=== PATIENT | female | born 1980 | race Caucasian/White ===

== ENCOUNTER 2019-12-10 15:37 | Emergency (ER) | payer OTHER, SELFPAY ==
--- NOTE | ~2019-12-10 | XR_ITS ---
EXAMINATION: XR chest 2V EXAM DATE: 12/10/2019 16:10 INDICATION: Chest discomfort. Weakness, dizziness. History of asthma. TECHNIQUE: Frontal and lateral projections of the chest obtained and reviewed. Comparison is made to prior examination from 07/10/2006. FINDINGS: The lungs are clear. There are no pleural effusions. The cardiomediastinal silhouette is within normal limits. There is no pneumothorax suspected. The bones and soft tissues are unremarkab le. There are cholecystectomy clips. IMPRESSION: No acute cardiopulmonary findings. Reviewed, dictated and finalized at location A.
[2019-12-10 15:40] VITALS: BP 138/91; PULSE 91; RESP 20; TEMP 36.1; O2SAT 100
[2019-12-10 15:49] VITALS: O2SAT 96
--- NOTE | 2019-12-10 15:57 | ECG_ITS ---
Measurements Intervals [place] Rate: 91 P: 47 FL: 145 QRS: 14 QRSD: 81 T: 30 QT: 341 QTc: 420 Interpretive Statements SINUS RHYTHM LOW QRS VOLTAGE IN PRECORDIAL LEADS BORDERLINE ECG Electronically Signed On 12-10-2019 16:57:12 CDT by Nate Grayson D.O.
--- NOTE | 2019-12-10 16:20 | ED.GENADULT ---
HPI - General Adult General Chief complaint: Weakness Stated complaint: WEAKNESS/DIZZY Time Seen by Provider: 12/10/19 16:07 Source: patient Mode of arrival: ambulatory Limitations: no limitations History of Present Illness HPI narrative: Patient is 39 years old white female, morbidly obese presents with multiple symptoms including generalized weakness, nausea, dizziness, shortness of breath for the last 2 months. Patient was told that her platelets are low. Currently patient denying any fever, chills, vomiting, diarrhea, urinary symptoms, chest pain, shortness of breath, COVID-19 exposure. Patient on Effexor, does not smoke or drink, does remember the last time of her menstrual period. Related Data Home Medications Medication Instructions Recorded Confirmed albuterol sulfate 90 mcg/actuation 1 puff INHALATION Q4H PRN 06/08/19 11/21/19 aerosol inhaler flunisolide 80 mcg/actuation HFA 80 mcg INHALATION BID 06/08/19 11/21/19 aerosol inhaler metformin 1,000 mg tablet 1,000 mg PO BID 06/08/19 11/21/19 naproxen 500 mg tablet 500 mg PO BID 06/08/19 11/21/19 norethindrone acetate 5 mg tablet 5 mg PO DAILY 06/08/19 11/21/19 venlafaxine 150 mg 150 mg PO BID cap 06/08/19 11/21/19 capsule,extended release 24 hr Allergies Allergy/AdvReac Type Severity Reaction Status Date / Time sulfamethoxazole Allergy hives Verified 12/10/19 15:52 [From Bactrim] Review of Systems Review of Systems: Narrative: CONSTITUTIONAL: Denies fever, chills, or sweats. EYES: Denies visual changes, redness, or discharge. ENT: Denies rhinorrhea, congestion, sore throat, or otalgia. CARDIOVASCULAR: Denies chest pain, palpitations, or edema. RESPIRATORY: Denies cough or dyspnea. GASTROINTESTINAL: Denies abdominal pain, nausea, vomiting, or diarrhea. GENITOURINARY: Denies dysuria or hematuria. SKIN: Denies rash or itching. MUSCULOSKELETAL: Denies back pain, joint pain, or myalgia. NEUROLOGIC: Denies headache, numbness, or weakness. PSYCHIATRIC: Denies anxiety or depression. [facility] Past Medical History Medical History Depression Follows with psych Fatigue Mild persistent asthma without complication Polycystic ovarian syndrome Family History Family History Father Family history of mental disorder Hypertension Family history of heart disease in male family member before age 55 Mother Family history of heart disease in male family member before age 55 Other Depression Social History Social History Smoking status: Never smoker Alcohol intake: never Exam Narrative: Exam Narrative: General appearance: Well-developed, well-nourished, morbidly obese, does not look in pain or distress. No family member at the bedside. Skin: Normal color Head: Normocephalic, nontraumatic Eyes: Clear conjunctiva ENT: Oropharynx normal, ears normal, nose normal Neck: Supple, nontender Chest and respiratory: Airway patent, no respiratory distress, no accessory muscle use Heart: Regular rate/rhythm Abdomen: Soft, nontender, no organomegaly, quiet bowel sounds Vascular: Normal peripheral pulses, normal capillary refill. Musculoskeletal: Normal range of motion, nontender back Neurologic: Alert and oriented ?3, WATER RESOURCES ENGINEER is normal as tested, no gross motor deficit Course Course Emergency Course: Stable Vital Signs Vital signs: Vital Signs Temperature 36.1 C L 12/10/19 15:40 Pulse Rate 91 12/10/19 15:40 Respiratory Rate 20 12/10/19 15:40 Blood Pressure 138/91 H 12/10/19 15:40 Pulse Oximetry 100 12/10/19 15:
[2019-12-10 16:36] LABS: Basophils Absolute Auto 0.1 K/mm3 (0.0-0.1); Basophils Percent Auto 0.4 % (0.2-1.2); Eosinophils Absolute Auto 0.3 K/mm3 (0-0.3); Eosinophils Percent Auto 1.8 % (0-4.4); Hematocrit 43.7 % (37.0-47.0); Hemoglobin 14.3 g/dL (12.0-15.0); Immature Granulocyte Absolute 0.04 K/mm3 (0.00-0.031); Immature Granulocyte Percent A 0.3 % (0-0.5); Lymphocytes Absolute Auto 2.99 K/mm3 (0.9-3.2); Lymphocytes Percent Auto 21.9 % (18.3-44.2); Mean Corpuscular HGB Conc 32.7 g/dl (32-36); Mean Corpuscular Hemoglobin 28.1 pg (26-34); Mean Corpuscular Volume 85.9 fl (80-100); Mean Platelet Volume 9.1 fl (7.4-10.4); Monocytes Absolute Auto 0.9 K/mm3 (0.1-0.6); Monocytes Percent Auto 6.7 % (2.6-8.5); Neutrophils Absolute Auto 9.4 K/mm3 (1.3-6.7); Neutrophils Percent Auto 68.9 % (45.5-73.1); Platelet Count Result 504 k/mm3 (150-375); Red Blood Count 5.09 M/mm3 (4.2-5.4); Red Cell Distribution Width 13.7 % (11.5-14.5); White Blood Count 13.6 K/mm3 (4.5-10.0)
[2019-12-10 16:49] LABS: Alanine Aminotransferase 16 U/L (4-35); Albumin Level 4.1 g/dL (3.5-5.1); Alkaline Phosphatase 77 U/L (38-126); Aspartate Amino Transferase 23 U/L (14-36); Bilirubin,Total 0.2 mg/dL (0.2-1.3); Blood Urea Nitrogen 12 mg/dL (7-17); Carbon Dioxide 27 mmol/L (22-30); Chloride 102 mmol/L (98-107); Estimated CRCL calculation 103 ml/min; Estimated Glomerular Filt Rate > 60; Glucose 100 mg/dL (65-105); Sodium 138 mmol/L (137-145)
[2019-12-10 17:09] VITALS: BP 154/88; PULSE 94; RESP 27; O2SAT 96
[2019-12-10 17:11] VITALS: PULSE 98
[2019-12-10 17:21] LABS: Add Urine Microscopic? YES; Appearance Urine Cloudy (Clear); Bacteria Urine Trace /hpf; Bilirubin Urine Negative (Negative); Color Urine Yellow (Yellow); Glucose Urine UA Negative (Negative); Ketones Urine Negative (Negative); Leukocyte Esterase Ur 3+ LEU/UL (Negative); Mucus Urine Rare /lpf; Nitrate Urine Negative (Negative); Protein Urine Negative (Negative); RBC Urine 0-2 /hpf (0-2); Specific Grav Ur 1.027 (1.001-1.035); Squamous Epithelial Cell Urine Many /hpf (Few); Urobilinogen Urine Negative mg/dL (<2.0); WBC Urine 16-20 /hpf
[2019-12-10 17:22] LABS: Blood Urine Negative (Negative)
[2019-12-10 18:03] VITALS: BP 139/87; PULSE 90; RESP 18; O2SAT 99
== END 2019-12-10 18:09 | disposition home or self-care (01) ==
PROVIDERS: Emergency Provider Emergency Medicine; PCP Family Medicine
DX: N39.0 Urinary tract infection, site not specified (principal); E66.01 Morbid (severe) obesity due to excess calories; Z68.42 Body mass index [BMI] 45.0-49.9, adult; F32.9 Major depressive disorder, single episode, unspecified; J45.30 Mild persistent asthma, uncomplicated; E28.2 Polycystic ovarian syndrome; R94.31 Abnormal electrocardiogram [ECG] [EKG]
CPT/HCPCS: 36415; 71046; 80053; 81001; 81025; 85025; 87086; 87088; 93005; 96365; 99284; J0696

== ENCOUNTER 2021-01-09 13:56 | Outpatient (CLI) | payer OTHER, SELFPAY ==
[2021-01-09 14:12] LABS: Basophils Absolute Auto 0.1 K/mm3 (0.0-0.1); Basophils Percent Auto 0.4 % (0.2-1.2); Eosinophils Absolute Auto 0.4 K/mm3 (0-0.3); Hematocrit 44.1 % (37.0-47.0); Immature Granulocyte Absolute 0.03 K/mm3 (0.00-0.031); Immature Granulocyte Percent A 0.2 % (0-0.5); Lymphocytes Absolute Auto 3.37 K/mm3 (0.9-3.2); Lymphocytes Percent Auto 27.4 % (18.3-44.2); Mean Corpuscular HGB Conc 31.7 g/dl (32-36); Mean Corpuscular Hemoglobin 28.5 pg (26-34); Mean Corpuscular Volume 89.6 fl (80-100); Mean Platelet Volume 9.1 fl (7.4-10.4); Neutrophils Absolute Auto 7.5 K/mm3 (1.3-6.7); Platelet Count Result 457 k/mm3 (150-375); Red Blood Count 4.92 M/mm3 (4.2-5.4); Red Cell Distribution Width 13.7 % (11.5-14.5); White Blood Count 12.3 K/mm3 (4.5-10.0)
== END 2021-01-09 13:57 | disposition home or self-care (01) ==
LOC: ANHLAB 14:00
PROVIDERS: PCP Family Medicine; Visit Provider Internal Medicine Hematology & Oncology
DX: R79.89 Other specified abnormal findings of blood chemistry (principal)
CPT/HCPCS: 36415; 85025

== ENCOUNTER 2021-08-19 11:00 | Outpatient (RCR) | payer SELFPAY ==
[2021-07-22 11:04] VITALS: BMI 49.8
[2021-07-22 11:05] VITALS: BMI 49.8
[2021-08-19 11:05] VITALS: BMI 49.6
[2021-08-19 11:07] VITALS: BMI 49.6
== END 2021-10-06 10:43 | disposition home or self-care (01) ==
LOC: ANHDMC 11:00
PROVIDERS: PCP Family Medicine; Visit Provider Internal Medicine Endocrinology, Diabetes & Metabolism
DX: E28.2 Polycystic ovarian syndrome (principal); Z68.43 Body mass index [BMI] 50.0-59.9, adult; Z71.3 Dietary counseling and surveillance
CPT/HCPCS: 97802; 97803

== ENCOUNTER 2021-12-16 15:55 | Outpatient (CLI) | payer OTHER, SELFPAY ==
--- NOTE | ~2021-12-16 | MM_ITS ---
EXAMINATION: MM screening maribel BI w mark HISTORY: Screening mammogram TECHNIQUE: Craniocaudal and mediolateral oblique 3-D tomosynthesis images were obtained and synthetic 2-D images were generated. CAD analysis was submitted and interpreted. COMPARISON: No prior mammogram is available for comparison at this institution. BREAST PARENCHYMAL COMPOSITION: The breasts are almost entirely fatty. FINDINGS: There is no evidence of suspicious mass, calcification, or architectural distortion to sugg est malignancy in either breast. There has been no suspicious interval change. IMPRESSION: 1. No mammographic evidence of malignancy. 2. Recommend routine screening mammography in one year. BI-RADS Category 1: Negative Reviewed, dictated and finalized at location A.
== END 2021-12-16 15:56 | disposition home or self-care (01) ==
PROVIDERS: PCP Family Medicine; Visit Provider Obstetrics & Gynecology
DX: Z12.31 Encounter for screening mammogram for malignant neoplasm of breast (principal)
CPT/HCPCS: 77063; 77067

== ENCOUNTER 2022-01-05 09:36 | Outpatient (CLI) | payer OTHER, SELFPAY ==
[2022-01-05 09:52] LABS: Basophils Absolute Auto 0.1 K/mm3 (0.0-0.1); Basophils Percent Auto 0.7 % (0.2-1.2); Eosinophils Absolute Auto 0.3 K/mm3 (0-0.3); Hematocrit 47.1 % (37.0-47.0); Immature Granulocyte Absolute 0.04 K/mm3 (0.00-0.031); Immature Granulocyte Percent A 0.4 % (0-0.5); Lymphocytes Absolute Auto 2.43 K/mm3 (0.9-3.2); Lymphocytes Percent Auto 23.1 % (18.3-44.2); Mean Corpuscular HGB Conc 31.8 g/dl (32-36); Mean Corpuscular Hemoglobin 29.1 pg (26-34); Mean Corpuscular Volume 91.5 fl (80-100); Monocytes Absolute Auto 0.7 K/mm3 (0.1-0.6); Neutrophils Absolute Auto 6.9 K/mm3 (1.3-6.7); Neutrophils Percent Auto 65.8 % (45.5-73.1); Platelet Count Result 492 k/mm3 (150-375); Red Blood Count 5.15 M/mm3 (4.2-5.4); Red Cell Distribution Width 13.4 % (11.5-14.5); White Blood Count 10.5 K/mm3 (4.5-10.0)
[2022-01-05 09:56] LABS: Blood Urea Nitrogen 14 mg/dL (8-26); Carbon Dioxide 23 mmol/L (22-30); Chloride 105 mmol/L (98-109); Estimated Glomerular Filt Rate > 60; Glucose 93 mg/dL (70-105); Ionized Calcium (POC) 1.09 mmol/L (1.11-1.31); Potassium 4.2 mmol/L (3.5-4.9); Sodium 139 mmol/L (138-146)
[2022-01-05 12:27] LABS: Alanine Aminotransferase 24 U/L (6-35); Albumin Level 4.2 g/dL (3.5-5.1); Alkaline Phosphatase 81 U/L (38-126); Anion Gap 8 mmol/L (8-16); Aspartate Amino Transferase 26 U/L (14-36); Bilirubin,Total 0.3 mg/dL (0.2-1.3); Blood Urea Nitrogen 14 mg/dL (7-17); Calcium 8.6 mg/dL (8.4-10.2); Carbon Dioxide 22 mmol/L (22-30); Chloride 106 mmol/L (98-107); Estimated Glomerular Filt Rate > 60; Glucose 88 mg/dL (65-110); Potassium 4.2 mmol/L (3.4-5.0); Sodium 136 mmol/L (137-145)
== END 2022-01-05 09:37 | disposition home or self-care (01) ==
LOC: ANHLAB 09:37
PROVIDERS: PCP Family Medicine; Visit Provider Internal Medicine Hematology & Oncology
DX: D75.838 Other thrombocytosis (principal)
CPT/HCPCS: 36415; 80047; 80053; 85025

== ENCOUNTER 2023-01-28 12:55 | Outpatient (CLI) | payer OTHER, SELFPAY ==
[2023-01-28 13:17] LABS: Basophils Absolute Auto 0.1 K/mm3 (0.0-0.1); Basophils Percent Auto 0.4 % (0.2-1.2); Eosinophils Absolute Auto 0.2 K/mm3 (0-0.3); Eosinophils Percent Auto 1.9 % (0-4.4); Hematocrit 44.4 % (37.0-47.0); Hemoglobin 14.4 g/dL (12.0-15.0); Immature Granulocyte Absolute 0.05 K/mm3 (0.00-0.031); Immature Granulocyte Percent A 0.4 % (0-0.5); Lymphocytes Absolute Auto 3.19 K/mm3 (0.9-3.2); Mean Corpuscular HGB Conc 32.4 g/dl (32-36); Mean Corpuscular Hemoglobin 29.6 pg (26-34); Mean Corpuscular Volume 91.2 fl (80-100); Mean Platelet Volume 8.7 fl (7.4-10.4); Monocytes Percent Auto 8.2 % (2.6-8.5); Neutrophils Absolute Auto 7.8 K/mm3 (1.3-6.7); Neutrophils Percent Auto 63.1 % (45.5-73.1); Platelet Count Result 507 k/mm3 (150-375); Red Blood Count 4.87 M/mm3 (4.2-5.4); Red Cell Distribution Width 13.3 % (11.5-14.5); White Blood Count 12.3 K/mm3 (4.5-10.0)
[2023-01-28 16:34] LABS: Alanine Aminotransferase 29 U/L (6-35); Albumin Level 4.2 g/dL (3.5-5.1); Alkaline Phosphatase 63 U/L (38-126); Anion Gap 6 mmol/L (8-16); Aspartate Amino Transferase 23 U/L (14-36); Bilirubin,Total 0.4 mg/dL (0.2-1.3); Blood Urea Nitrogen 15 mg/dL (7-17); Calcium 9.1 mg/dL (8.4-10.2); Carbon Dioxide 26 mmol/L (22-30); Chloride 101 mmol/L (98-107); Estimated Glomerular Filt Rate > 60; Glucose 92 mg/dL (65-110); Potassium 4.3 mmol/L (3.4-5.0); Sodium 133 mmol/L (137-145)
== END 2023-01-28 12:56 | disposition home or self-care (01) ==
LOC: ANHLAB 12:57
PROVIDERS: Visit Provider Internal Medicine Hematology & Oncology
DX: D75.838 Other thrombocytosis (principal)
CPT/HCPCS: 36415; 80053; 85025

== ENCOUNTER 2023-03-18 15:10 | Outpatient (CLI) | payer OTHER, SELFPAY ==
--- NOTE | ~2023-03-18 | MM_ITS ---
EXAMINATION: MM screening maribel BI w mark HISTORY: Screening mammogram, family history of breast cancer in her mother. TECHNIQUE: Craniocaudal and mediolateral oblique 3-D tomosynthesis images were obtained and synthetic 2-D images were generated. CAD analysis was submitted and interpreted. COMPARISON: 12/16/2021 BREAST PARENCHYMAL COMPOSITION: The breasts are almost entirely fatty. FINDINGS: No suspicious mass, calcification, or architectural distortion are identified in either ashley ast to suggest malignancy. There has been no suspicious interval change. IMPRESSION: 1. No mammographic evidence of malignancy. 2. Recommend routine screening mammography in one year. BI-RADS Category 1: Negative Reviewed, dictated and finalized at location B.
== END 2023-03-18 15:11 | disposition home or self-care (01) ==
PROVIDERS: Visit Provider Obstetrics & Gynecology
DX: Z12.31 Encounter for screening mammogram for malignant neoplasm of breast (principal)
CPT/HCPCS: 77063; 77067

== ENCOUNTER 2023-09-14 10:42 | Outpatient (CLI) | payer OTHER, SELFPAY ==
--- NOTE | ~2023-09-14 | MMUS_ITS ---
EXAMINATION: MM diagnostic maribel BI w mark, US axilla LT HISTORY: Palpable left axillary abnormality. Tenderness. TECHNIQUE: Additional 3-D tomosynthesis images of the breasts were performed and synthetic 2-D images were generated. CAD analysis was submitted and interpreted. High resolution Limited left axillary ul trasound was performed. COMPARISON: Comparison to multiple prior studies sequentially, with oldest reviewed study dated 12/16. BREAST PARENCHYMAL COMPOSITION: Not dense: There are scattered areas of fibroglandular density. FINDINGS: MAMMOGRAPHIC FINDINGS: There are no suspicious masses, calcifications or architectural distortion in either breast to sugges t malignancy. ULTRASOUND: Limited left axillary ultrasound: Normal heterogeneous echotexture without focal solid or cystic mass . IMPRESSION: 1. No evidence for malignancy in either breast. 2. Routine yearly screening mammogram and regular clinical breast examination are recommended. BI-RADS Category 1: Negative Reviewed, dictated and finalized at location A. [facility] PLANNING IMPRESSION: 1. No evidence for malignancy in either breast. 2. Routine yearly screening mammogram and regular clinical breast examination a re recommended. BI-RADS Category 1: Negative
== END 2023-09-14 10:43 | disposition home or self-care (01) ==
DX: R22.32 Localized swelling, mass and lump, left upper limb (principal)
CPT/HCPCS: 76882; 77062; 77066; G0279

== ENCOUNTER 2024-02-02 09:33 | Outpatient (CLI) | payer OTHER, SELFPAY ==
[2024-02-02 09:50] LABS: Basophils Percent Auto 0.4 % (0.2-1.2); Eosinophils Absolute Auto 0.5 K/mm3 (0-0.3); Eosinophils Percent Auto 4.3 % (0-4.4); Hematocrit 45.8 % (37.0-47.0); Hemoglobin 14.7 g/dL (12.0-15.0); Immature Granulocyte Absolute 0.02 K/mm3 (0.00-0.031); Immature Granulocyte Percent A 0.2 % (0-0.5); Lymphocytes Absolute Auto 2.59 K/mm3 (0.9-3.2); Lymphocytes Percent Auto 23.7 % (18.3-44.2); Mean Corpuscular HGB Conc 32.1 g/dl (32-36); Mean Corpuscular Hemoglobin 28.9 pg (26-34); Mean Platelet Volume 8.7 fl (7.4-10.4); Monocytes Absolute Auto 0.7 K/mm3 (0.1-0.6); Monocytes Percent Auto 6.7 % (2.6-8.5); Neutrophils Absolute Auto 7.1 K/mm3 (1.3-6.7); Neutrophils Percent Auto 64.7 % (45.5-73.1); Platelet Count Result 468 k/mm3 (150-375); Red Blood Count 5.09 M/mm3 (4.2-5.4); Red Cell Distribution Width 12.9 % (11.5-14.5); White Blood Count 10.9 K/mm3 (4.5-10.0)
== END 2024-02-02 09:34 | disposition home or self-care (01) ==
PROVIDERS: Visit Provider Internal Medicine Hematology & Oncology
DX: D75.838 Other thrombocytosis (principal)
CPT/HCPCS: 36415; 85025

== ENCOUNTER 2025-02-01 09:36 | Outpatient (CLI) | payer OTHER, SELFPAY ==
--- OUTSIDE RECORDS SUMMARY | 2025-02-01 09:40 | XMS_ITS | Encounter Summary ---
Author Organization [facility] Address [address] [place] [address] Care Team Providers Care Curing Room Supervisor Name Role Phone Bony Wright MD Primary Care Provider [phone] Franki Nunn DO Primary Care Provider + [phone] Encounter Details Date Type Department Care Team (Late st Contact Info) Description 03/18/2022 Prep for Procedure [facility] Day [facility] [place], [place] [id number] Tom Briscoe DO [address] [place] [address] [address] [place] [address] Social History Tobacco Use Types Packs/Day Years Used Date Smoking Tobacco: Never Smokeless Tobacco: Never Alcohol Use Standard Drinks/Week Comments No 0 (1 standard drink = 0.6 oz pur e alcohol) AUDIT-C Answer Date Recorded Frequency of Alcohol Consumption Never 11/23/2018 Average Number of Drinks Not on file 019 Frequency of Binge Drinking Not on file 02/2019 Comments No Sex and Gender Information Value Date Recorded Sex Assigned at Not on file Legal Sex Female 7:56 PM CDT Gender Identity Not on file Sexual Orientation Not on file documented as of this encounter Plan of Treatment Not on file documented as of this encounter Visit Diagnoses Diagnosis Constipation- Primary Unspecified constipation documented in this encounter Additional Health Concerns Infection Onset Date Last Indicated Resolved Time COVID-19 Rule Out 04/16/2022 04/16/2022 04/16/2022 11:44 AM CDT documented as of this encounter Care Teams Curing Room Supervisor Relationship Specialty Start Date End Date Bony Wright MD [address] [place] [address] PCP - General FAMILY PRACTICE 11/23/18 04/15/22 Franki Nunn DO [address] [address] PCP - General FAMILY PRACTICE 04/16/22 documented as of this encounter
--- OUTSIDE RECORDS SUMMARY | 2025-02-01 09:40 | XMS_ITS | Encounter Summary ---
Author Organization [facility] Address [address] [place] [address] Care Team Providers Care Car Sales Representative Name Role Phone Bony Wright MD Primary Care Provider [phone] Franki Nunn DO Primary Care Provider + [phone] Encounter Details Date Type Department Care Team (Late st Contact Info) Description 04/07/2022 Prep for Procedure [facility] One Day Services [place], [place] [id number] Tom Briscoe DO [address] [place] [address] [address] [place] [address] Social History Tobacco Use Types Packs/Day Years [...] as of this encounter Visit Diagnoses Diagnosis GERD (gastroesophageal reflux disease)- Primary Esophageal reflux Constipation Unspecified constipation History of colon polyps Personal history of colonic polyps documented in this encounter Additional Health Concerns Infection Onset Date Last Indicated Resolved Time COVID-19 Rule Out 04/16/2022 04/16/2022 04/16/2022 11:44 AM CDT documented as of this encounter Care Teams Car Sales Representative Relationship Specialty Start Date End Date Bony Wright MD [address] [place] [address] PCP - General FAMILY PRACTICE 11/23/18 04/15/22 Franki Nunn DO [address] [address] PCP - General FAMILY PRACTICE 04/16/22 documented as of this encounter
--- OUTSIDE RECORDS SUMMARY | 2025-02-01 09:40 | XMS_ITS | Clinical Summary ---
Author Organization [facility] Address [address] [place] [address] Care Team Providers Care Short Goods Drier Name Role Phone Franki Nunn DO Primary Care Provider [phone] Allergies Active Allergy Reactions Criticality Noted Date Comments Sulfamethoxazole-Trimethoprim Rash High 2019 Medications norethindrone (AYGESTIN) 5 MG tablet Take 1 tablet (5 mg total) by mouth daily. Active venlafaxine XR (EFFEXOR-XR) 150 MG 24 hr capsule Take 1 capsule (150 mg total) by mouth daily. Active aspirin EC (ECOTRIN) 81 MG tablet Take 1 tablet (81 mg total) by mouth daily. Active famotidine (PEPCID) 40 MG tablet Take 1 tablet (40 mg total) by mouth 2 (two) times daily as needed for Heartburn. Active albuterol sulfate HFA 108 (90 Base) MCG/ACT inhaler Inhale 1 puff into the lungs every 4 (four) hours as needed. Active losartan (COZAAR) 50 MG tablet Take 1 tablet (50 mg total) by mouth daily. 05/21/2021 Active meloxicam (MOBIC) 15 MG tablet Take 1 tablet (15 mg total) by mouth daily as needed (Inflammatio n). 04/08/2022 Active metFORMIN (GLUCOPHAGE) 1000 MG tablet Take 1 tablet (1,000 mg total) by mouth 2 (two) times daily. 04/08/2022 Active hydrOXYzine (ATARAX) 10 MG tablet Take 1 tablet (10 mg total) by mouth 3 (three) times daily as needed for Anxiety. Active Immunizations Immunization Administration Dates Next Due Influenza Adult (Generic) 05/21/2021,,05/02/2020,06/01/2019,2018,09/05/2014 Social History Tobacco Use Types Packs/Day Years [...] on file Sexual Orientation Not on file Last Filed Vital Signs Vital Sign Reading Time Taken Comments Blood Pressure 153/98 04/18/2024 5:55 PM CDT Pulse 84 04/18/2024 5:55 PM CDT Temperature 36.9 C (98.5 F) 04/18/2024 5:55 PM CDT Respiratory Rate 18 04/18/2024 5:55 PM CDT Oxygen Saturation 100% 04/18/2024 5:55 PM CDT Inhaled Oxygen Concentration - - Weight 136.1 kg (300 lb) 04/18/2024 5:55 PM CDT Height 165.1 cm (5' 5) 04/18/2024 5:55 PM CDT Body Mass Index 49.92 04/18/2024 5:55 PM CDT Plan of Treatment Health Maintenance Due Date Last Done Comments Annual Physical 1983 Hepatitis C 1998 Hepatitis B Vaccines (1 of 3 - 19+ 3-dose series) 1999 COVID-19 Vaccine (2023-2 5 season) 2024 Mammogram Screening 09/14/2025 09/14/2023 Cervical Cancer Screening Pa p Smear (Age 30 to 64) Every 3 Years 12/20/2026 12/21/2023, 01/21/2022 Cervical Cancer Screening Pa p with HPV Testing (Age 30 to 64) Every 5 Years 01/21/2027 01/21/2022 Cervical Cancer Screening wi th HPV 01/21/2027 DTaP, Tdap and Td Vaccines ( 2 - Td or Tdap) 01/17/2034 01/18/2024 Pneumococcal Vaccine: Pediatrics (0 to 5 Years) and At-Risk Patients (6 to 49 Years) Aged Out 04/29/2023 No longer eligible b ased on patient's age to complete this topic HPV Vaccines Aged Out No longer eligi ble based on patient's age to complete this topic Meningococcal B Vaccine Aged Out No l onger eligible based on patient's age to complete this topic Meningococcal Vaccine Aged Out No new jennifer eligible based on patient's age to complete this topic RSV Immunizations Under 20 Months Aged Out No longer eligible b ased on patient's age to complete this topic Insurance [employer] Care Teams Short Goods Drier Relationship Specialty Start Date End Date Franki Nunn DO [address] [address] PCP - General FAMILY PRACTICE 04/16/22
--- OUTSIDE RECORDS SUMMARY | 2025-02-01 09:41 | XMS_ITS | Clinical Summary ---
Author Organization [facility] Address [address] [place] [address] Care Team Providers Care Hr Receptionist Name Role Phone Franki Nunn DO Primary Care Provider + Allergies Active Allergy Reactions Criticality Noted Date Comments Sulfamethoxazole-Trimethoprim Hives,Rash,Urticaria High 12/19/2019 Medications albuterol HFA (PROVENTIL HFA,VENTOLIN HFA,PROAIR HFA) 90 mcg/actuation inhaler albuterol sulfate HFA 90 mcg/actuation aerosol inhaler INHALE 1 PUFF BY MOUTH EVERY 4 HOURS NEEDED FOR SHORTNESS OF BREATH OR WHEEZING Active aspirin 81 mg enteric coated tablet Take 1 tablet (81 mg total) by mouth daily Active losartan (COZAAR) 50 mg tablet Take 1 tablet (50 mg total) by mouth daily 1 Active metFORMIN (GLUCOPHAGE) 1,000 mg tablet TAKE 1/2 (ONE-HALF) TABLET BY MOUTH TWICE DAILY 0 Active norethindrone (AYGESTIN) 5 mg tablet norethindrone acetate 5 mg tablet TAKE 1 TABLET BY MOUTH ONCE DAILY DURING SECOND HALF OF THE MENSTRUAL CYCLE 0 Active nystatin cream nystatin 100,000 unit/gram topical cream APPLY CREAM TOPICALLY TO AFFECTED AREA(S) TWICE DAILY FOR 5 TO 7 DAYS NEEDED (MIX WITH TRIAMCINOLONE CREAM) Active terconazole (TERAZOL 7) 0.4 % vaginal cream terconazole 0.4 % vaginal cream Active traMADoL (ULTRAM) 50 mg tablet Take 1 tablet (50 mg total) by mouth every 6 (six) hours as needed 9 Active triamcinolone (KENALOG) 0.1 % cream triamcinolone acetonide 0.1 % topical cream APPLY CREAM TOPICALLY TO AFFECTED AREA(S) TWICE DAILY FOR 5 TO 7 DAYS NEEDED (MIX WITH NYSTATIN CREAM) 2 Active venlafaxine XR (EFFEXOR-XR) 150 mg 24 hr capsule 3 Active ziprasidone (GEODON) 20 mg capsule Active naproxen (NAPROSYN) 500 mg tabletIndicati ons:Contusion of toe of left foot, initial encounter Take 1 tablet (500 mg total) by mouth 2 (two) times a day with meals for 15 days 30 tablet 5 Active Active Problems Problem Noted Date Diagnosed Date Knee pain 08/07/2022 Knee joint effusion 08/07/2022 Wrist joint pain 08/07/2022 Reactive thrombocytosis 12/19/2019 Osteoarthrosis 06/30/2019 PCOS (polycystic ovarian syndrome) 09/19/2014 IBS (irritable bowel syndrome) 05/21/2011 Degenerative disc disease, lumbar 05/21/2011 Ulcerative colitis 05/20/2011 Obesity 02/12/2010 Encounters Date Type Department Care Team Description 11/22/2024 12:25 PM CDT Ancillary Procedure [facility] [address] [phone] Contusion of toe of left foot, initial encounter 11/22/2024 Results Follow-Up [facility] [address] [address] Shreya Dozier, COLLECTION TELLER XR Toe 2nd Digit Right Minimum 2 Views 11/21/2024 3:30 PM CDT Office Visit [facility] [address] [phone] Shreya Dozier, COLLECTION TELLER Toe injury, right, initial encounter (Primary Dx); Contusion of toe of left foot, initial encounter 11/03/2024 10:45 AM CDT Office Visit [facility] [address] [facility] [address] [place] [address] Yuli Escalante MD De Quervain's tenosynovitis (Primary Dx) from Last 3 Months Surgical History Surgery Date Site/Laterality Comments CARPAL TUNNEL RELEASE 07/19/2010 - 07/18/2011 Right CHOLECYSTECTOMY 07/19/2006 - 07/18/2007 Medical History Medical History Date Comments ADHD (attention deficit hyperactivity disorder) Diabetes mellitus (HCC) Anemia Asthma Depression Gastric reflux Hypertension Hypercholesteremia Migraines Osteoporosis Social History Tobacco Use Types Packs/Day Years Used Date Smoking Tobacco: Never Tobacco Cessation:Counseling Given: Not Answered Personal Safety Answer Date Recorded Have you ever been in or are you currently in a harmful physical or emotional relationship or is someone making you feel afraid or unsafe? Denies 06/05/2024 Comments No Sex and Gender Information Value Date Recorded Sex Assigned at Not on file Legal Sex Female 6:44 PM PAINT PREPPER Gender Identity Not on file Sexual Orientation Not on file Obstetrics History Last Filed Vital Signs Vital Sign Reading Time Taken Comments Blood Pressure 120/59 06/06/2024 7:40 AM PAINT PREPPER Pulse 59 11/21/2024 3:31 PM CDT Temperature 36.5 C (97.7 F) 11/21/2024 3:31 PM CDT Respiratory Rate 18 11/21/2024 3:31 PM CDT Oxygen Saturation 99% 11/21/2024 3:31 PM CDT Inhaled Oxygen Concentration - - Weight 144.2 kg (318 lb) 11/21/2024 3:31 PM CDT Height 160 cm (5' 3) 11/21/2024 3:31 PM CDT Body Mass Index 56.33 11/21/2024 3:31 PM CDT Plan of Treatment Health Maintenance Due Date Last Done Comments Cervical Cancer Screening 1980 Depression Screening 1980 Hepatitis C Screening 1980 Varicella Vaccines (1 of 2 - 13+ 2-dose series) 1993 Hepatitis B Screening 1998 Regular Well Visit/Exam 18-64 1998 Pneumococcal vaccine <65 (1 of 2 - PCV) 1999 Breast Cancer Screening-Mammogram 09/14/2024 09/14/2023, 09/14/2023 DTaP/Tdap/Td Vaccine (2 - Td or Tdap) 01/17/2034 01/18/2024 Influenza Vaccine Completed 06/02/2024, , 04/29/2022, Additional history exists HPV Vaccines Aged Out No longer eligi ble based on patient's age to complete this topic Procedures Procedure Name Priority Date/Time Associated Diagnosis Comments XR TOE 2ND DIGIT RIGHT Schedule WOLFGANG, Read WOLFGANG (Appt Today, Awaiting Results) 11/21/2024 3:46 PM CDT Contusion of toe of left foot, initial encounter [place] INJECTION 1 TENDON SHEATH/LIGAMENT APONEUROSIS Routine 11/03/2024 10:45 AM CDT De Quervain's tenosynovitis from Last 3 Months Results * XR Toe 2nd Digit Right Minimum 2 Views (11/21/2024 3:46 PM CDT) Anatomical Region Laterality Modality Lower Extremities, Foot, Toes Right Co mputed Radiography 11/22/2024 2:54 PM CDT Narrative 11/22/2024 2:55 PM CDT EXAM DESCRIPTION: XR TOE 2ND DIGIT RIGHT MINIMUM 2 VIEWS REASON FOR STUDY: Foot trauma, no prior imaging (Age >= 6y) TECHNIQUE: 3 radiographic view(s) of the right foot 2nd digit . COMPARISON: None FINDINGS: There is no definite evidence of acute displaced fracture or dislocation the 2nd digit of the right foot. There is mild soft tissue swelling. IMPRESSION: Mild soft tissue swelling involving the 2nd digit of the right foot without definite evidence of acute displaced fracture or dislocation. If clinical symptoms persist, then follow-up radiographs in 7-10 days is recommended. THIS IS AN ELECTRONICALLY VERIFIED FINAL REPORT 11/22/2024 2:55 PM - Electronically signed by Gloria Ugarte D.O. PS T: Report ID: [id number] Reading Location: [id number] Procedure Note Gloria Ugarte DO - 11/22/2024 EXAM DESCRIPTION: XR TOE 2ND DIGIT RIGHT MINIMUM 2 VIEWS REASON FOR STUDY: Foot trauma, no prior imaging (Age >= 6y) TECHNIQUE: 3 radiographic view(s) of the right foot 2nd digit . COMPARISON: None FINDINGS: There is no definite evidence of acute displaced fracture or dislocation the 2nd digit of the right foot. There is mild soft tissue swelling. IMPRESSION: Mild soft tissue swelling involving the 2nd digit of the right footwithout definite evidence of acute displaced fracture or dislocation. If clinical symptoms persist, then follow-up radiographs in 7-10 days isrecommended. THIS IS AN ELECTRONICALLY VERIFIED FINAL REPORT 11/22/2024 2:55 PM - Electronically signed by Gloria Ugarte D.O. PS T: Report ID: [id number] Reading Location: [place] [address] [place] Shreya Dozier COLLECTION TELLER IMG XR PROCEDURES Final Resu lt * UT INJECTION 1 TENDON SHEATH/LIGAMENT APONEUROSIS (11/03/2024 10:45 AM CDT) Narrative Yuli Escalante MD - 11/03/2024 10:45 AM CDT Yuli Escalante MD 11/03/2024 10:57 AM De Quervain's injection: L extensor compartment 1 Performed by: Yuli Escalante MD Authorized by: Yuli Escalante MD De Quervain's Injection: Consent Given by: Patient Site marked: the procedure site was marked Timeout: prior to procedure the correct patient, procedure, and site was verified Verbal consent obtained?: Yes Written consent obtained?: No Supporting Documentation: Indications: Pain and tendon swelling Procedure Details: Condition: de Quervain's Site: L extensor compartment 1 Prep: patient was prepped and draped in usual sterile fashion Prep: patient was prepped using a clean technique Medications: 1 mL lidocaine 10 mg/mL (1 %); 40 mg triamcinolone 40 mg/mL us Yuli Escalante MD IN CLINIC/BEDSIDE ORDERAB LES Final Result from Last 3 Months Insurance Care Teams Hr Receptionist Relationship Specialty Start Date End Date Franki Nunn DO [address] [address] PCP - General Family Practice 06/06/24
--- OUTSIDE RECORDS SUMMARY | 2025-02-01 09:41 | XMS_ITS | Data Portability ---
Author Organization [place] - [facility] [employer], Main Office Address [address] [place] [address] Care Team Providers Care Storage Engineer Name Role Phone MARIO CARDENAS Primary Care Provider Assessment No assessment recorded. Plan of Treatment Reminders Order Date Submit Date Provider Last Modified By Organization Details Last Modified Time Details Appointments Follow Up 15 2024 10:15A M Marcelino Rodriguez MD Not available Not available Not available Lab None recorded. Referral None recorded. Procedures fine needle aspiratio n, ultrasoun d guided, thyroid (PROC) 2023 024 [email or web address] 2 [facility], [address] [place], [address], 10/25/2024 15:21:11 Surgeries None recorded. Imaging None recorded. Medication Orders None recorded. Patient TargetsNo targets recorded. Patient InstructionsNo instructions recorded. Reason for Referral None Reported. Results Created Date Observation Date Name Description Value Unit Range Abnormal Flag Note LastModifiedBy Organization Detail LastModifiedTime 06/07/2006/07/2022 XR, wrist No observ ation record ed. [id number] [facility] [address] [place], [address], 09/16/2022 13:54:27 03/08/20 24 01/15/2024 CT, angio gram, chest , w/ contr ast No observ ation record ed. [email or web address] Not Available 2023 12:20:12 03/08/20 24 02/16/2024 US, thyro id No observ ation record ed. [email or web address] Not Available 2023 12:20:57 04/04/20 24 04/04/2024 fine needl e aspir ation , ultra sound guide d, thyro id (PROC ) No observ ation record ed. [email or web address] [facility] [address] , [place], [address], 04/05/2024 15:58:57 Result Notes None recorded. Problems Name Problem SNOMED Code Status Onset Date Resolution Date Notes Provider Name and Address Organization Details Recorded Time Knee joint effusion Active Not Available [facility] 13:52:10 Pain of joint of wrist Active Not Available [facility] 13:52:10 Knee pain Active Not Available [facility] 13:52:10 Osteoarthriti s 557848384 Active Not Available [facility] 13:52:10 Carpal tunnel syndrome 25443749 Active Not Available [facility] 13:52:10 Constipation 50820831 Active 2020 Not Available [facility] 3 13:52:10 Thyroid nodule 546037452 Active 2023 Marcela Chen RN null, [facility] [employer] 4 14:58:06 Thyroid nodule 240325202 Active 2023 DAYSI Nelson [address], [address] , [facility] [employer] [facility] [employer] 4 15:03:02 Problem Notes None recorded. Procedures Surgical History Date Name Laterality Status Provider Name and Address Organization Details Recorded Time 07/19/19 11 Date of Last Colonoscopy completed Not Available [facility] 09/16/2022 13:51:42 07/19/19 11 Colonoscopy completed Not Available [facility] 09/16/2022 13:51:42 Cholecystectomy completed Not Available [facility] 09/16/2022 13:51:42 Carpal tunnel completed Not Available [facility] 09/16/2022 13:51:42 Imaging Results None recorded. Procedure Notes None recorded. Medical Equipment None Reported. Allergies Allergen ID Allergen Name Allergen Category Reaction Reaction Severity Criticality Documentation Date Start Date Code Code System Note Provider Name and Address Organization Details Recorded Time 89107 Bactrim medicatio n Not available Not available Not available 09/16/2022 70343 9 RxNorm Not Available [facility] 3 13:54:26 63810 Substance with sulfonami de structure and antibacte rial mechanism of action (substanc e) medicatio n hives rash Not available Not available [facility] 03/01/2024 36000 8003 SNOMED MAR Watson [facility] [employer] 4 08:40:47 26825 sulfameth oxazole / trimethop rim medicatio n hives rash Not available Not available [facility] 03/01/2024 03424 RxNorm MAR Watson [facility] [employer] 4 08:40:43 Medications Name Sig Start Date Stop Date Status Note LastModified by Organization Details LastModified Time losartan 50 mg tablet Take 1 tablet every day by oral route. active Not Available Not Available No t Available amoxicillin 500 mg capsule 12/25 completed Not Available Not Available Not Available metformin 500 mg tablet TAKE 1 TABLET BY MOUTH TWICE DAILY 03/01 completed Not Available Not Available Not Available terconazole 0.4 % vaginal cream 03/01 completed Not Available Not Available Not Available venlafaxine ER 75 mg capsule,ext ended release 24 hr TAKE 1 CAPSULE BY MOUTH ONCE DAILY TAKE WITH EFFEXOR XR 150MG FOR TOTAL DAILY DOSE OF 225MG 03/01 completed Not Available Not Available Not Available atorvastati n 20 mg tablet TAKE 1 TABLET BY MOUTH ONCE DAILY IN THE EVENING 03/01 completed Not Available Not Available Not Available Tab-A-Prince tablet 03/01 completed Not Available Not Available Not Available ibuprofen 800 mg tablet 12/25 completed Not Available Not Available Not Available fluconazole 150 mg tablet TAKE ONE TABLET BY MOUTH TODAY AND REPEAT IN 3 DAYS 02/22 completed Not Available Not Available Not Available valacyclovi r 1 gram tablet TAKE 2 TABLETS BY MOUTH NOW THEN TAKE 2 TABLETS BY MOUTH 12 HOURS LATER 02/22 completed Not Available Not Available Not Available fluconazole 200 mg tablet TAKE 1 TABLET BY MOUTH EVERY OTHER DAY FOR 3 DOSES 02/24 completed Not Available Not Available Not Available meloxicam 15 mg tablet Take 1 tablet every day by oral route. active Not Available Not Available No t Available famotidine 40 mg tablet TAKE 1 TABLET BY MOUTH TWICE DAILY 03/01 completed Not Available Not Available Not Available Generlac 10 gram/15 mL oral solution TAKE 30ML BY MOUTH TWICE DAILY 02/24 completed Not Available Not Available Not Available terconazole 0.8 % vaginal cream 06/22 completed Not Available Not Available Not Available venlafaxine ER 150 mg capsule,ext ended release 24 hr TAKE 1 CAPSULE BY MOUTH ONCE DAILY WITH MEALS active Not Available Not Available No t Available penicillin V potassium 500 mg tablet 06/22 completed Not Available Not Available Not Available metronidazo le 500 mg tablet TAKE 1 TABLET BY MOUTH TWICE DAILY FOR 7 DAYS 03/01 completed Not Available Not Available Not Available ciprofloxac in 500 mg tablet 12/25 completed Not Available Not Available Not Available sulfamethox azole 800 mg-trimetho prim 160 mg tablet 06/22 completed Not Available Not Available Not Available tramadol 50 mg tablet 02/22 completed Not Available Not Available Not Available triamcinolo ne acetonide 0.1 % topical cream APPLY CREAM TOPICALLY TO AFFECTED AREA(S) TWICE DAILY FOR 5 TO 7 DAYS NEEDED (MIX WITH [place]STATIN CREAM) 03/01 completed Not Available Not Available Not Available terconazole 80 mg vaginal suppository 02/22 completed Not Available Not Available Not Available nystatin-tr iamcinolone 100,000 unit/gram-0 .1 % topical ointment 02/22 completed Not Available Not Available Not Available amoxicillin 875 mg tablet 12/25 completed Not Available Not Available Not Available ziprasidone 20 mg capsule 02/22 completed Not Available Not Available Not Available phenazopyri dine 100 mg tablet 06/22 completed Not Available Not Available Not Available cephalexin 500 mg capsule TAKE 1 CAPSULE BY MOUTH TWICE DAILY 12/25 completed Not Available Not Available Not Available erythromyci n 5 mg/gram (0.5 %) eye ointment 12/25 completed Not Available Not Available Not Available metformin 1,000 mg tablet Take 0.5 tablets twice a day by oral route. active Not Available Not Available No t Available tobramycin 0.3 % eye drops INSTILL 1 DROP INTO EACH EYE EVERY 4 HOURS FOR 7 DAYS 02/22 completed Not Available Not Available Not Available nystatin 100,000 unit/gram topical cream APPLY CREAM TOPICALLY TO AFFECTED AREA(S) TWICE DAILY FOR 5 TO 7 DAYS NEEDED (MIX WITH TRIAMCINO LONE CREAM) 02/22 completed Not Available Not Available Not Available dextroamphe tamine-amph etamine ER 10 mg 24hr capsule,ext end release TAKE 1 CAPSULE BY MOUTH ONCE DAILY IN THE MORNING 02/22 completed Not Available Not Available Not Available montelukast 10 mg tablet Take 1 tablet every day by oral route for 30 days. 03/01 completed Not Available Not Available Not Available aspirin 81 mg tablet Take 1 tablet every day by oral route. active Not Available Not Available No t Available ziprasidone 40 mg capsule 06/22 completed Not Available Not Available Not Available norethindro ne acetate 5 mg tablet TAKE 1 TABLET BY MOUTH ONCE DAILY DURING SECOND HALF OF THE MENSTRUAL CYCLE active Not Available Not Available No t Available ibuprofen 600 mg tablet 12/25 completed Not Available Not Available Not Available albuterol sulfate HFA 90 mcg/actuati on aerosol inhaler INHALE 1 PUFF BY MOUTH EVERY 4 HOURS NEEDED FOR SHORTNESS OF BREATH OR WHEEZING active Not Available Not Available No t Available norethindro ne (contracept laurel) 0.35 mg tablet TAKE 1 TABLET BY MOUTH ONCE DAILY 02/22 completed Not Available Not Available Not Available oxybutynin chloride 5 mg tablet TAKE 1 TABLET BY MOUTH THREE TIMES DAILY 02/24 completed Not Available Not Available Not Available ondansetron 4 mg disintegrat ing tablet 06/22 completed Not Available Not Available Not Available naproxen 500 mg tablet 02/22 completed Not Available Not Available Not Available amoxicillin 875 mg-potassiu m clavulanate 125 mg tablet TAKE 1 TABLET BY MOUTH TWICE DAILY 12/25 completed Not Available Not Available Not Available Concerta 27 mg tablet,exte nded release TAKE 1 TABLET BY MOUTH ONCE DAILY IN THE MORNING 02/24 completed Not Available Not Available Not Available dextroamphe tamine-amph etamine ER 15 mg 24hr capsule,ext end release TAKE 1 CAPSULE BY MOUTH ONCE DAILY IN THE MORNING 08/07 /2021 completed Not Available Not Available Not Available nitrofurant oin monohydrate /macrocryst als 100 mg capsule TAKE 1 CAPSULE BY MOUTH EVERY 12 HOURS FOR 10 DAYS 12/25 completed Not Available Not Available Not Available Dulera 200 mcg-5 mcg/actuati on HFA aerosol inhaler 02/24 completed Not Available Not Available Not Available Dulera 100 mcg-5 mcg/actuati on HFA aerosol inhaler Inhale 2 puffs twice a day by inhalatio n route. 03/01 completed Not Available Not Available Not Available Vitals Date Recorded Body mass index (BMI) Body height Oxygen saturation Oxygen saturation in Arterial blood by Pulse oximetry Heart rate Respiratory rate Body temperature Body weight Systolic And Diastolic Provider Name and Address Organization Details Last Updated DateTime 49.9 kg/m2 165.1 cm 99 % 99 % 75 /min 19 /min 97.2 [degF] 938551. 71 g 124/88 mm[Hg] Not Available [facility] 13:51:59 Date Recorded Body height Body mass index (BMI) Body weight Body temperature Provider Name and Address Organization Details Last Updated DateTime 03/09/2024 165.1 cm 51.9 kg/m2 907535.38 g 97.4 [degF] MAR Watson [place] [employer] [facility] 03/09/2024 14:33:49 Social History Question Answer Notes LastModified by [employer] Details LastModified Time Tobacco Smoking Status Never Smoker Not Available [facility] 09/16/2022 13:51:41 What Is Your Level Of Caffeine Consumption? Occasional [id number] Information not available 09/16/2022 What Type Of Diet Are You Following? REGULAR [id number] 026 Information not available 09/16/2022 What Was The Date Of Your Most Recent Tobacco Screening? 02/24/2021 [id number] Information not available 09/16/2022 What Is Your Relationship Status? [id number] Information not available 09/16/2022 Do You Have Any Dietary Restrictions? No [id number] Information not available 09/16/2022 Sex: Unknown Functional Status Question Answer Note LastModified by [employer] Details LastModified Time Do you use any illicit or recreational drugs? No [id number] Information not available 09/16/2022 Do you or have you ever used any other forms of tobacco or nicotine? No [id number] 26 Information not available 09/16/2022 What is your level of alcohol consumption? None [email or web address] Information not available 03/01/2024 Mental Status None recorded. Family History Relationship Description Onset Age of this Age Resolved Age Notes LastModified by Organization Details LastModified Time Mother Malignant tumor of breast 68 [id number] Not available 09/16/2022 13:51:43 Mother Sj gren's syndrome [id number] Not available 09/16/2022 13:51:43 Mother Fibromyalgia MIGRATION.0 30 [id number] Not available 09/16/2022 13:51:43 Mother Rheumatoid arthritis [id number].117 [id number] Not available 09/16/2022 13:51:43 Father Diabetes mellitus [id number] Not available 09/16/2022 13:51:43 Father Bipolar disorder MIGRATION.098 [id number] Not available 09/16/2022 13:51:43 Mother Malignant tumor of thyroid gland [email or web address] Not available 2023 09:03:23 Medical History Condition Response DIABETES, TYPE Y ENT Y LUNG DISEASE/DISORDER Y INSOMNIA Y HYPERTENSION Y HIGH CHOLESTEROL / HYPERLIPIDEMIA Y POLYCYSTIC OVARIES Y ANXIETY DISORDER Y OBESITY Y BLOOD DISEASES Y URINARY/BLADDER/KIDNEY PROBLEMS Y DEPRESSION (INCLUDING POST ) Y BACK / NECK PROBLEMS Y SLEEP DISORDER Y Gynecological History Statement/Question Response Date of Last Pap 09/17/2019 Date of Last Mammogram 06/04/2020 Date of Last Colonoscopy 07/19/2010 Date of LMP 02/09/2021 Obstetrics History GPAL:G 0 P 0 0 0 0 Past Encounters Encounter ID Performer Location Encounter Start Date Encounter Closed Date Diagnosis/Indication Diagnosis SNOMED-CT Code Diagnosis ICD10 Code Diagnosis Note [id number] _ATHN_MIGR ATION_1 _ATHENA_M IGRATION_ DEFAULT_1 _1 , 02/24/2021 00:00:00 02/24/2021 15:50:40 [id number] ADYSI Nelson [facility] Derick Almendarez [address] [place] [address] 03/09/2024 14:22:52 03/09/2024 15:04:47 Thyroid nodule 781130886 E04.1 Health Concerns Section Related Observation LastModified by Organization Detai ls LastModified Time None Recorded Concern Status LastModified by Organization Details LastModified Time None Recorded Advance Directives Directive None Recorded Payers Insurance Date Sequence Insurance Name Policy Number Policy Kuhn Covered Member ID Kuhn Member ID Guarantor Name 01/23/2025 1 [facility] ON OR AFTER 01/16/21 (MEDICAID REPLACEMENT - HMO) Marlen Lucero [id number] Marlen Lucero Notes Date Note Type Note Provider Name and Address Organization Details Recorded Time 03/09/2024 text/html This patient has a PMH significant for anxiety, degenerative disc disease, leukocytosis, depression, diabetes, thyroid nodule, HTN, and hypersomnia who presents to the clinic for a right thyroid nodule. She had a thyroid ultrasound completed on 02/16/2024 resulting in bilateral thyroid nodules measuring up to 3.4 cm on the right and 1.9 cm on the left. She is considered a TI-RADS 3 and an FNA is recommended. She reports a family history of thyroid cancer. Denies any other concerns. Marcela Thomas, MINE SAFETY ENGINEER [address], [place] [address], [place], [address], [facility] [employer] [facility] 03/09/2024 15:03:34 OBGyn Episode No OBEpisode recorded.
--- OUTSIDE RECORDS SUMMARY | 2025-02-01 09:41 | XMS_ITS | Data Portability ---
Author Organization '[facility] Address [address] [place] [address] Care Team Providers Care Brand Recorder Name Role Phone RONALDKATHERINEN Primary Care Provider Assessment Encounter Date Assessment Date Assessment LastModified by Organization Details LastModified Time 12/21/2023 12/21/2023 Annual gynecological exam performed. Patient will come back in a year unless there are new symptoms. Not available 12/21/2023 11:25:57 01/22/2025 01/22/2025 Annual gynecological exam performed. Patient will come back in a year unless there are new symptoms. [email or web address] Not available 01/22/2025 14:09:55 Plan of Treatment Reminders Order Date Submit Date Provider Last Modified By Organization Details Last Modified Time Details Appointments None recorded. Lab pap, IG + HR HPV - HPV regardless but if HPV is positive need subtyping 16,18/45 2024 025 [facility] (Lab), [address], [place], [address], 5 12:21:52 CBC w/ auto diff 2023 024 [facility] (Lab), [address], [place], [address], 4 04:11:52 CMP, serum or plasma 2023 024 [facility] (Lab), [address], [place], [address], 4 04:11:54 lipid panel, blood 2023 024 [facility] (Lab), [address] [facility], [place], [address], 4 04:11:53 TSH, serum or plasma 2023 024 [facility] (Lab), [address] [facility], [place], [address], 4 04:11:55 25-hydroxyv itamin D2 + 25-hydroxyv itamin D3, QN, serum or plasma 2023 024 [facility] (Lab), [address] [facility], [place], [address], 4 04:11:55 hormone panel, serum or plasma 2023 024 [facility] (Lab), [address], [place], [address], 4 21:38:39 prolactin, serum 2023 024 [facility] (Lab), [address], [place], [address], 4 21:38:39 shbg (sex hormone-bin ding globulin), serum 2023 024 [facility] (Lab), [address] [facility], [place], [address], 4 21:38:40 TSH, serum or plasma 2023 024 [facility] (Lab), [address], [place], [address], 4 21:38:40 testosteron e free/testos terone total, ratio, serum 2023 024 [facility] (Lab), [address], [place], [address], 4 21:38:41 Referral None recorded. Procedures None recorded. Surgeries None recorded. Imaging MAMMO, screening, digital, bilateral 2024 025 [facility], [address], [place] [address], [place], [address], 5 04:01:00 Medication Orders metronidazo le 500 mg tablet 2023 [email or web address], [address], 4 10:45:38 fluconazole 150 mg tablet 2023 [email or web address], [address], 4 10:45:33 nystatin-tr iamcinolone 100,000 unit/gram-0 .1 % topical ointment 2023 024 [place] [address], [address] [place] [address], [address], 4 10:45:53 estradiol 2 mg tablet 2022 023 [email or web address] [address], [address] [place] [address], [address], 5 14:12:06 norethindro ne acetate 5 mg tablet 2022 023 [place] [address], [address] [place] [address], [address], 3 11:22:38 Patient TargetsNo targets recorded. Patient InstructionsNo instructions recorded. Reason for Referral None Reported. Results Created Date Observation Date Name Description Value Unit Range Abnormal Flag Note LastModifiedBy Organization Detail LastModifiedTime 08/05/19 24 08/05/2023 VAGIN ITIS/ VAGIN OSIS, DNA PROBE rogers sp. detection, direct probe Negati ve negati ve Not Available [facility] (Lab) [address] [facility], [place], [address], 08/06/2023 13:41:06 08/05/19 24 08/05/2023 VAGIN ITIS/ VAGIN OSIS, DNA PROBE gardnerella vag. detection, direct probe Negati ve negati ve Not Available [facility] (Lab) [address] [facility], [place], [address], 08/06/2023 13:41:06 08/05/19 24 08/05/2023 VAGIN ITIS/ VAGIN OSIS, DNA PROBE trichomonas vag. detection, direct probe Negati ve negati ve Not Available [facility] (Lab) [address] [facility], [place], [address], 08/06/2023 13:41:06 10/04/19 24 10/04/2023 PROLA CTIN prolactin, total 15.20 NG/mL 4.79-2 3.30 This assay was perfo rmed using [employer] ratio n reage nts and test kits. Value s obtai pipo with other assay metho ds or kits canno t be used inter [facility] . Not Available [facility] (Lab) [address] [facility], [place], [address], 10/08/2023 21:38:39 10/04/19 24 10/04/2023 FSH, LH, ESTRA DIOL estradiol 24.7 pg/mL This assay was perfo rmed using [employer] ratio n reage nts and test kits. Value s obtai pipo with other assay metho ds or kits canno t be used inter [facility] . Femal e Estra diol Range s: Folli cular phasE 12.4- 233 pg/mL Ovula tion phasE 41.0- 398 pg/mL Lutea l phasE 22.3- 341 pg/mL Postm enopa usal <5-13 8 pg/mL Healt hy Pregn ant Women 1st Trime ster 154-3 243 pg/mL 2nd Trime ster 1561- 38962 pg/mL 3rd Trime ster 8525- >3000 0 pg/mL Not Available [facility] (Lab) [address] [facility], [place], [address], 10/08/2023 21:38:39 10/04/19 24 10/04/2023 FSH, LH, ESTRA DIOL FSH 0.8 mIU/m L This assay was perfo rmed using [employer] ratio n reage nts and test kits. Value s obtai pipo with other assay metho ds or kits canno t be used inter [facility] . Femal es Folli cular : 3.5-1 2.5 mIU/m L Ovula tion: 4.7-2 1.5 mIU/m L Lutea l: 1.7-7 .7 mIU/m L Postm enopa use: 25.8- 134.8 mIU/m L Not Available [facility] (Lab) [address] [facility], [place], [address], 10/08/2023 21:38:39 10/04/19 24 10/04/2023 FSH, LH, ESTRA DIOL LH <0.3 mIU/m L This assay was perfo rmed using [employer] ratio n reage nts and test kits. Value s obtai pipo with other assay metho ds or kits canno t be used inter [facility] . Femal es Mid-F ollic ular: 2.4-1 2.6 mIU/m L Mid-C ycle: 14.0- 95.6 mIU/m L Mid-L uteal : 1.0-1 1.4 mIU/m L Postm enopa use: 7.7-5 8.5 mIU/m L Not Available [facility] (Lab) [address] [place], [address], 10/08/2023 21:38:39 10/04/19 24 10/04/2023 TSH, REFLE X FREE T4 TSH 2.01 uIU/m L 0.30-5 .33 Not Available [facility] (Lab) [address] [facility], [place], [address], 10/08/2023 21:38:40 10/04/19 24 10/04/2023 HUMAN SEX HORMO NE HUSAM NG GLOBU BRUCE sex hormone binding globulin 14.8 nmole s/L 18.2-1 35.5 low Not Available [facility] (Lab) [address] [facility], [place], [address], 10/08/2023 21:38:40 10/04/19 24 10/04/2023 TESTO STERO NE, FREE( DIALY SIS) AND TOTAL (LC/M S/MS) testosterone , total 9 NG/dL 2-45 For addit ional infor mary jane felder e refer to http: //[facility] ailyn monahan.que stdia gnost ics.c om/fa q/ Total Testo stero [facility] Q165 (This link is being provi ded for infor najma nal/ educa guerda l purpo ses only. ) This test was devel oped and its saurabh tical perfo rmanc e chau cteri stics have been deter mined by [facility] [place], [place]. It has not been clear ed or appro mayela by the U.S. Food and Drug Admin istra tion. This assay has been valid ated pursu ant to the CLIA regul ation s and is used for clini jo-ann purpo ses. Not Available [facility] (Lab) [address] [facility], [place], [address], 10/08/2023 21:38:41 10/04/19 24 10/04/2023 TESTO STERO NE, FREE( DIALY SIS) AND TOTAL (LC/M S/MS) testosterone , free 1.7 pg/mL 0.1-6. 4 This test was devel oped and its saurabh tical perfo rmanc e chau cteri stics have been deter mined by [facility] [place] [place]. It has not been clear ed or appro mayela by the U.S. Food and Drug Admin istra tion. This assay has been valid ated pursu ant to the CLIA regul ation s and is used for clini jo-ann purpo ses. Perfo rming Organ izati on Infor matio n: Site ID: [id number] Name: [facility] Jerrell ls Insti brady Addre ss: [id number] [facility] [employer] [place], [place] Direc tor: Angelito Herring MD PhD Not Available [facility] (Lab) [address] [facility], [place], [address], 10/08/2023 21:38:41 12/21/19 24 12/21/2023 CBC W/DIF F WBC 9.1 10'3/ uL 3.5-10 .5 Not Available [facility] (Lab) [address] [place], [address], 12/22/2023 04:11:52 12/21/19 24 12/21/2023 CBC W/DIF F RBC 4.98 10'6/ uL (based on docume nted legal sex) 3.80-5 .20 Not Available [facility] (Lab) [address], [place], [address], 12/22/2023 04:11:52 12/21/19 24 12/21/2023 CBC W/DIF F HGB 14.3 g/dL (based on docume nted legal sex) 11.6-1 5.4 Not Available [facility] (Lab) [address] [place], [address], 12/22/2023 04:11:52 12/21/19 24 12/21/2023 CBC W/DIF F HCT 46.1 % (based on docume nted legal sex) 34.0-4 5.0 high Not Available [facility] (Lab) [address] [place], [address], 12/22/2023 04:11:52 12/21/19 24 12/21/2023 CBC W/DIF F MCV 92.6 fL 80.0-9 9.0 Not Available [facility] (Lab) [address], [place], [address], 12/22/2023 04:11:52 12/21/19 24 12/21/2023 CBC W/DIF F MCH 28.7 pg 27.0-3 4.0 Not Available [facility] (Lab) [address], [place], [address], 12/22/2023 04:11:52 12/21/19 24 12/21/2023 CBC W/DIF F MCHC 31.0 g/dL 32.0-3 5.5 low Not Available [facility] (Lab) [address], [place], [address], 12/22/2023 04:11:52 12/21/19 24 12/21/2023 CBC W/DIF F RDW 14.0 % 11.0-1 5.0 Not Available [facility] (Lab) [address], [place], [address], 12/22/2023 04:11:52 12/21/19 24 12/21/2023 CBC W/DIF F plt 480 10'3/ uL 150-40 0 high Not Available [facility] (Lab) [address] [place], [address], 12/22/2023 04:11:52 12/21/19 24 12/21/2023 CBC W/DIF F MPV 9.6 fL 8.8-12 .1 Not Available [facility] (Lab) [address] [place], [address], 12/22/2023 04:11:52 12/21/19 24 12/21/2023 CBC W/DIF F NRBC's 0.0 % 0.0 Not Available [facility] (Lab) [address] [place], [address], 12/22/2023 04:11:52 12/21/19 24 12/21/2023 CBC W/DIF F absolute NRBCs 0.0 10'3/ uL no refere nce range establ ished Not Available [facility] (Lab) [address] [facility], [place], [address], 12/22/2023 04:11:52 12/21/19 24 12/21/2023 CBC W/DIF F neutrophils 52.9 % 34.0-7 3.0 Not Available [facility] (Lab) [address] [facility], [place], [address], 12/22/2023 04:11:52 12/21/19 24 12/21/2023 CBC W/DIF F lymphocytes 33.0 % 15.0-5 0.0 Not Available [facility] (Lab) [address] [facility], [place], [address], 12/22/2023 04:11:52 12/21/19 24 12/21/2023 CBC W/DIF F monocytes 9.8 % 1.0-15 .0 Not Available [facility] (Lab) [address] [facility], [place], [address], 12/22/2023 04:11:52 12/21/19 24 12/21/2023 CBC W/DIF F eosinophils 3.6 % 0.0-8. 0 Not Available [facility] (Lab) [address] [place], [address], 12/22/2023 04:11:52 12/21/19 24 12/21/2023 CBC W/DIF F basophils 0.4 % 0.0-2. 0 Not Available [facility] (Lab) [address] [facility], [place], [address], 12/22/2023 04:11:52 12/21/19 24 12/21/2023 CBC W/DIF F immature granulocytes 0.3 % no define d refere nce range Not Available [facility] (Lab) [address] [facility], [place], [address], 12/22/2023 04:11:52 12/21/19 24 12/21/2023 CBC W/DIF F absolute neutrophils 4.8 10'3/ uL 1.5-8. 0 Not Available [facility] (Lab) [address] [facility], [place], [address], 12/22/2023 04:11:52 12/21/19 24 12/21/2023 CBC W/DIF F absolute lymphocytes 3.0 10'3/ uL 1.0-4. 0 Not Available [facility] (Lab) [address] [facility], [place], [address], 12/22/2023 04:11:52 12/21/19 24 12/21/2023 CBC W/DIF F absolute monocytes 0.9 10'3/ uL 0.2-1. 0 Not Available [facility] (Lab) [address] [facility], [place], [address], 12/22/2023 04:11:52 12/21/19 24 12/21/2023 CBC W/DIF F absolute eosinophils 0.3 10'3/ uL 0.0-0. 6 Not Available [facility] (Lab) [address] [place], [address], 12/22/2023 04:11:52 12/21/19 24 12/21/2023 CBC W/DIF F absolute basophils 0.0 10'3/ uL 0.0-0. 3 Not Available [facility] (Lab) [address] [facility], [place], [address], 12/22/2023 04:11:52 12/21/19 24 12/21/2023 CBC W/DIF F absolute immature granulocytes 0.0 10'3/ uL 0.00-0 .10 024 1:55 AM: P indic ates parti al resul ts on a panel have been relea sed. Addit ional resul ts will follo w. 024 1:55 AM: This resul t has been final verif ied. No addit ional or doll ed resul ts are expec adelaide. Not Available [facility] (Lab) [address] [place], [address], 12/22/2023 04:11:52 12/21/19 24 12/21/2023 LIPID PANEL ,AMA (LDL- CALC) total cholesterol 179 mg/dL 0-199 Not Available [facility] (Lab) [address] [place], [address], 12/22/2023 04:11:53 12/21/19 24 12/21/2023 LIPID PANEL ,AMA (LDL- CALC) triglyceride s 133 mg/dL 0-150 NCEP Refer ence Value s for Trigl yceri za: Kristin l: <150 mg/dL Borde rline High: 150 - 199 mg/dL High: 200 - 499 mg/dL Very High: >/= 500 mg/dL Not Available [facility] (Lab) [address] [place], [address], 12/22/2023 04:11:53 12/21/19 24 12/21/2023 LIPID PANEL ,AMA (LDL- CALC) HDL cholesterol 37 mg/dL >40 low Not Available [facility] (Lab) [address] [place], [address], 12/22/2023 04:11:53 12/21/19 24 12/21/2023 LIPID PANEL ,AMA (LDL- CALC) LDL cholesterol 117 mg/dL 0-99 high Cutof f value s recom wily d by the Natio nal [place] stero l Educa tion Progr am: MARY ABLE: [place] stero l <200 mg/dL LDL <100 mg/dL BORDE RLINE : [place] stero l 200-2 39 mg/dL LDL 101-1 59 mg/dL HIGHE R RISK: Selma stero l >240 mg/dL LDL >160 mg/dL , HDL <40 mg/dL Not Available [facility] (Lab) [address] [facility] [place], [address], 12/22/2023 04:11:53 12/21/1912/21/2023 LIPID PANEL ,AMA (LDL- CALC) non-HDL cholesterol 142 mg/dL no refere nce range A reaso nable goal for non-H DL selma stero l is one that is 30 mg/dL highe r than the LDL selma stero l goal. Not Available [facility] (Lab) [address], [place], [address], 12/22/2023 04:11:53 12/21/19 24 12/21/2023 LIPID PANEL ,AMA (LDL- CALC) chol/HDL ratio 4.8 . 0.0-5. 0 On November 10, 2022, [facility] labor atori vanessa doll ed the equat ion for calcu latin g estim ated low-d ensit y lipop rotei n-cho leste rol (LDL- C) from the Fried simón equat ion to the Tatyana taniya/Hop kins equat ion. This new equat ion is only valid for lipid panel s with trigl yceri za < 400 mg/dL . Studi es have demon belén ed that this new equat ion will impro ve the accur acy of LDL-C , espec ially in scena barraza when LDL-C vika ntrat ions are relat ively low (< 100 mg/dL ), trigl yceri za are eleva adelaide, or patie nt is non-f astin g. Refer ences : - Tatyana monahan, Yonny Chavarria, Lars Gongora , Leeanne francisco, Jarocho Javed, Jarocho ashford h, Mike neville , and Hesham Gallego . 2013. Comp ariso n of a Novel Metho d vs the Fried simón Equat ion for Estim ating Low-D ensit y Lipop rotei n [place] stero l Level s from the Stand augusto Lipid Profi le. ILAN: The Journ al of the Ameri can Medic al Assoc iatio n 310 (44): 2060- . - Amador davis V, Benita J, Aracely davis A, Alycia M, Dayanna e R, Cleve davis E, Shruthi neville RS, Julián SR, Tatyana n SS. Fast ing Versu s Nonfa sting and Low-D ensit y Lipop rotei n [place] stero l Accur acy. Circu katie n. 2017Jul 20;137 (1):1 0-19. Not Available [facility] (Lab) [address] [place], [address], 12/22/2023 04:11:53 12/21/19 24 12/21/2023 CMP(C OMPRE HENSI VE METAB OLIC PANEL ) sodium 139 mmol/ L 133-14 6 Not Available [facility] (Lab) [address] [facility], [place], [address], 12/22/2023 04:11:54 12/21/19 24 12/21/2023 CMP(C OMPRE HENSI VE METAB OLIC PANEL ) potassium 4.9 mmol/ L 3.5-5. 1 Not Available [facility] (Lab) [address] [place], [address], 12/22/2023 04:11:54 12/21/19 24 12/21/2023 CMP(C OMPRE HENSI VE METAB OLIC PANEL ) chloride 105 mmol/ L 98-107 Not Available [facility] (Lab) [address] [place], [address], 12/22/2023 04:11:54 12/21/19 24 12/21/2023 CMP(C OMPRE HENSI VE METAB OLIC PANEL ) carbon dioxide 27 mmol/ L 21-31 Not Available [facility] (Lab) [address] [place], [address], 12/22/2023 04:11:54 12/21/19 24 12/21/2023 CMP(C OMPRE HENSI VE METAB OLIC PANEL ) anion gap 7 mmol/ L 4-13 Not Available [facility] (Lab) [address] [place], [address], 12/22/2023 04:11:54 12/21/19 24 12/21/2023 CMP(C OMPRE HENSI VE METAB OLIC PANEL ) blood urea nitrogen 17 mg/dL 7-25 Not Available [facility] (Lab) [address], [place], [address], 12/22/2023 04:11:54 12/21/19 24 12/21/2023 CMP(C OMPRE HENSI VE METAB OLIC PANEL ) creatinine 0.78 mg/dL 0.60-1 .30 Not Available [facility] (Lab) [address] [facility], [place], [address], 12/22/2023 04:11:54 12/21/19 24 12/21/2023 CMP(C OMPRE HENSI VE METAB OLIC PANEL ) egfrcr (CKD-epi 2020) >90 mL/mi n/1.7 3_m2 >=60 Not Available [facility] (Lab) [address] [facility], [place], [address], 12/22/2023 04:11:54 12/21/19 24 12/21/2023 CMP(C OMPRE HENSI VE METAB OLIC PANEL ) calcium 9.0 mg/dL 8.3-10 .5 Not Available [facility] (Lab) [address] [place], [address], 12/22/2023 04:11:54 12/21/19 24 12/21/2023 CMP(C OMPRE HENSI VE METAB OLIC PANEL ) glucose 60 mg/dL 70-100 low Not Available [facility] (Lab) [address] [place], [address], 12/22/2023 04:11:54 12/21/19 24 12/21/2023 CMP(C OMPRE HENSI VE METAB OLIC PANEL ) protein, total 6.7 g/dL 6.4-8. 3 Not Available [facility] (Lab) [address] [place], [address], 12/22/2023 04:11:54 12/21/19 24 12/21/2023 CMP(C OMPRE HENSI VE METAB OLIC PANEL ) albumin 4.0 g/dL 3.5-5. 0 Not Available [facility] (Lab) [address] [facility], [place], [address], 12/22/2023 04:11:54 12/21/19 24 12/21/2023 CMP(C OMPRE HENSI VE METAB OLIC PANEL ) ALT 16 units /L 9-43 Not Available [facility] (Lab) [address] [facility], [place], [address], 12/22/2023 04:11:54 12/21/19 24 12/21/2023 CMP(C OMPRE HENSI VE METAB OLIC PANEL ) alkaline phosphatase 73 units /L 34-104 Not Available [facility] (Lab) [address] [facility], [place], [address], 12/22/2023 04:11:54 12/21/19 24 12/21/2023 CMP(C OMPRE HENSI VE METAB OLIC PANEL ) AST 14 units /L 13-39 Not Available [facility] (Lab) [address] [facility], [place], [address], 12/22/2023 04:11:54 12/21/19 24 12/21/2023 CMP(C OMPRE HENSI VE METAB OLIC PANEL ) bilirubin, total 0.3 mg/dL 0.2-1. 2 Not Available [facility] (Lab) [address] [facility], [place], [address], 12/22/2023 04:11:54 12/21/19 24 12/21/2023 TSH, REFLE X FREE T4 TSH 1.74 uIU/m L 0.30-5 .33 Not Available [facility] (Lab) [address] [place], [address], 12/22/2023 04:11:54 12/21/19 24 12/21/2023 VITAM IN D, 25-OH (TOTA L D2/D3 ) vitamin D, 25-hydroxy, total 26.4 NG/mL 30.0-1 00.0 low Sugge stive of Defic iency : <20 ng/mL Sugge stive of Insuf ficie ncy: 20-29 ng/mL Sugge stive of Suffi cienc y: 30-10 0 ng/mL Sugge stive of Toxic ity: >150 ng/mL Not Available [facility] (Lab) [address], [place], [address], 12/22/2023 04:11:55 12/21/19 24 12/21/2023 IMAGE GUIDE D PAP AND HPV REGAR DLESS image guided Pap, HPV regardless of Pap result SEE RESULT S BELOW CASE REPOR T: Cytol ogy Gynec ologi jo-ann Repor t Case: [id number] Autho [facility] g Provi candace: Rickey Headley MD Colle cted: 12/20 1235 Order ing Locat ion: [place] Patho logy Recei mayela: 12/21 0829 First Scree n: Sophia Magana , [place] Patho logis t: Giovany Laehy rd, MD Speci men: Scree nupur Pap - Image d, Cervi x STATE MENT OF ADEQU ACY: Satis facto ry for evalu ation Trans forma tion zone compo nent prese nt ----- ----- ----- ----- ----- ----- ----- ----- ----- ----- ----- ----- ----- ----- ----- ----- ----- ---- FINAL DIAGN OSIS: Negat laurel for Intra epith elial Lesio n or Sherrill howell (NIL) . Infla mmato ry cell doll es (incl udes typic al repai r). Elect danielle monterroso by Giovany Leahy rd, MD on 024 at 2:18 PM ----- ----- ----- ----- ----- ----- ----- ----- ----- ----- ----- ----- ----- ----- ----- ----- ----- ---- HPV RESUL TS: HPV mRNA E6/E7 : No HPV mRNA Detec adelaide NOTE: This high risk HPV mRNA assay detec ts fourt een high- risk HPV types (16, 18, 31, 33, 35, 39, 45, 51, 52, 56, 58, 59, 66, 68) witho ut diffe renti ation . COMME NT: This speci men was revie wed by a Cytot echno logis t and/o r Patho logis t (as indic ated in this repor t) after evalu ation using the Thinp rep Imagi ng Syste m. CLINI JO-ANN INFOR MATIO N: Menst rual Statu s: LMP (if appli cable ): Clini jo-ann Histo ry/Pr eviou s Pap: High RIsk Type of Neopl dudley (if appli cable ): Signi fican t Clini jo-ann Findi ngs: Other Histo ry: Hormo ashley (if appli cable ): PAP EDUCA GUERDA L NOTE: The Pap Test is a scree nupur test with an inher ent false negat laurel rate. Liqui d-bas ed sampl ing may decre ase, but will not elimi mary, false negat laurel resul ts. A negat laurel resul t does not precl ude the prese nce and/o r devel opmen t of disea se, since the prese nce of abnor mal cells in the sampl e depen ds on the locat ion of the lesio n and sampl ing techn ique. Gloria nued regul ar scree nupur is the best metho d of cance r preve ntion . If repor adelaide cytol ogic findi ng do not corre late with physi jo-ann and/o r histo rical findi ngs, furth er inves tigat ion is recom wily d, as clini otf boggs nted. Not Available [facility] (Lab) [address], [place], [address], 12/23/2023 15:22:20 01/23/20 25 01/22/2025 IMAGE GUIDE D PAP AND HPV REGAR DLESS image guided Pap, HPV regardless of Pap result SEE RESULT S BELOW CASE REPOR T: Cytol ogy Gynec ologi jo-ann Repor t Case: [id number] Aut[address] sukhwinder betito Provi candace: Angelia Chung, NESHA Colle cted: 01/22 1431 Order ing Locat ion: [place] Patho logy Recei mayela: 01/23 0221 First Malloriee n: Leeanne Ravi ed, CT Rescr een: Sudarshan Pugh, CAROL Speci men: Zeeshan espitia Pap - Image d, Cervi x STATE MENT OF ADEQU ACY: Satis facto ry for evalu ation Trans forma tion zone compo nent prese nt ----- ----- ----- ----- ----- ----- ----- ----- ----- ----- ----- ----- ----- ----- ----- ----- ----- ---- FINAL DIAGN OSIS: Negat laurel for Intra epith elial Henny monahan or Sherrill howell ([facility]) . Elect danielle monterroso by Sudarshan Pugh, CT on 025 at 1117 CDT ----- ----- ----- ----- ----- ----- ----- ----- ----- ----- ----- ----- ----- ----- ----- ----- ----- ---- HPV RESUL TS: HPV mRNA E6/E7 : No HPV mRNA Detec adelaide NOTE: This high risk HPV mRNA assay detec ts fourt een high- risk HPV types (16, 18, 31, 33, 35, 39, 45, 51, 52, 56, 58, 59, 66, 68) witho ut diffe renti ation . COMME NT: This speci men was revie wed by a Cytot echno logis t and/o r Patho logis t (as indic ated in this repor t) after evalu ation using the Thinp rep Imagi ng Syste m. CLINI JO-ANN INFOR MATIO N: Menst rual Statu s: LMP (if appli cable ): Clini jo-ann Histo ry/Pr eviou s Pap: Type of Neopl dudley (if appli cable ): Signi fican t Clini jo-ann Findi ngs: Other Histo ry: Hormo ashley (if appli cable ): PAP EDUCA GUERDA L NOTE: The Pap Test is a scree nupur test with an inher ent false negat laurel rate. Liqui d-bas ed sampl ing may decre ase, but will not elimi mary, false negat laurel resul ts. A negat laurel resul t does not precl ude the prese nce and/o r devel opmen t of disea se, since the prese nce of abnor mal cells in the sampl e depen ds on the locat ion of the lesio n and sampl ing techn ique. Gloria nued regul ar scree nupur is the best metho d of cance r preve ntion . If repor adelaide cytol ogic findi ng do not corre late with physi jo-ann and/o r histo rical findi ngs, furth er inves tigat ion is recom wily d, as clini otf warrgail nted. Not Available [facility] (Lab) [address], [place], [address], 01/24/2025 12:21:52 Result Notes None recorded. Problems Name Problem SNOMED Code Status Onset Date Resolution Date Notes Provider Name and Address Organization Details Recorded Time No current problems or disabili ty 294219209 Active [facility] 2 12:24:28 Urinary tract infectio us disease 81280813 Completed 201811/06/2020 Urinary tract infection , site not specified ;Practice ID: [id number] Natasha stanley [facility] 16:59:33 Human papillom avirus deoxyrib onucleic acid detected , high risk on cervical specimen [id number] Completed 201802/18/2021 Cervical high risk HPV DNA test positive; Practice ID: 0001 Estela stanley [facility] 11:39:34 Pregnanc y test negative [id number] Completed 201811/06/2020 Encounter for test, result negative; Practice ID: [id number] Natasha stanley [facility] 16:59:28 Blood leukocyt e number above referenc e range [id number] Completed 201811/06/2020 Elevated white blood cell count, unspecifi ed;Record ed Elsewhere : No Locati on: [facility] So urce: EHR Chron ic: N Practic e ID: [id number] Bill able Time: 09:15:00 AM Natashamicheal stanley [facility] 16:59:24 Acute vaginiti s [id number] Completed 201911/06/2020 Vulvovagi nitis;Rec orded Elsewhere : No Locati on: [facility] So urce: EHR Chron ic: N Practic e ID: 0001 Bill able Time: 11:00:00 AM Natasha stanley [facility] 16:59:[address] Concept Completed 201911/06/2020 Encntr for urogynaecologist exam (general) (routine) w/o abn findings; Practice ID: [id number] Natasha stanley [facility] 16:59:31 Pelvic and perineal pain [id number] Completed 201911/06/2020 Pelvic and perineal pain;Prac herminio ID: [id number] Natasha stanley [facility] 16:59:35 Problem Notes None recorded. Procedures Surgical History Date Name Laterality Status Provider Name and Address Organization Details Recorded Time 024 Date of Last Pap Smear completed Nikole Price [facility] 12/30/2023 10:15:20 023 Date of Last Mammogram completed Rosario Cardona [facility] 01/22/2025 14:14:24 023 Colposcopy completed Torrey Headley MD [address], [place], [address], [facility] 02/12/2023 16:03:17 023 Colposcopy completed Shreya Melendez [facility] 10/04/2023 10:48:34 022 Colposcopy completed Natasha [facility] 03/19/2023 00:03:58 022 Colposcopy completed Torrey Headley MD [address], [place], [address], [facility] 06/27/2022 19:56:58 022 Colposcopy completed Torrey Headley MD [address], [place], [address], [facility] 12/05/2021 15:50:39 022 Colposcopy completed Torrey Headley MD [address], [place], [address], [facility] 09/01/2021 20:42:20 022 Colposcopy completed Natasha Gandhi [facility] 03/19/2023 00:01:12 021 LEEP completed Torrey Headley MD [address], [place], [address], [facility] 01/11/2021 19:02:53 021 LEEP completed [facility] 07/16/2021 12:46:37 021 completed [facility] 01/10/2021 12:02:25 021 Colposcopy completed Torrey Headley MD [address], [place], [address], [facility] 11/29/2020 11:35:31 021 Colposcopy completed [facility] 10/02/2021 11:14:16 021 Colposcopy completed [facility] 12/23/2020 15:37:17 019 Colposcopy completed [facility] 11/06/2020 17:00:36 011 Date of Last Colonoscopy completed Spring Weber [facility] 10/05/2022 15:25:23 011 Carpal tunnel surgery completed Shreya [facility] 10/04/2023 10:47:27 007 [facility] 10:47:42 Imaging Results None recorded. Procedure Notes None recorded. Medical Equipment None Reported. Allergies Allergen ID Allergen Name Allergen Category Reaction Reaction Severity Criticality Documentation Date Start Date Code Code System Note Provider Name and Address Organization Details Recorded Time 34564 Substance with sulfonami de structure and antibacte rial mechanism of action (substanc e) medicatio n hives Not available Not available 07/05/2020 [id number] SNOMED Sangeeta stanley [facility] 15:39:27 Medications Name Sig Start Date Stop Date Status Note LastModified by Organization Details LastModified Time losartan 50 mg tablet TAKE 1 TABLET BY MOUTH ONCE DAILY active Not Available Not Available No t Available amoxicill in 500 mg capsule TAKE 1 CAPSULE BY MOUTH TWICE DAILY FOR 7 DAYS 01/22 completed Not Available Not Available Not Available metformin 500 mg tablet TAKE 1 TABLET BY MOUTH TWICE DAILY 01/21 completed Not Available Not Available Not Available terconazo le 0.4 % vaginal cream INSERT ONE APPLICAT ORFUL VAGINALL Y AT BEDTIME FOR 7 DAYS 06/09 completed Not Available Not Available Not Available nystatin 100,000 unit/mL oral suspensio n SWISH, GARGLE, AND SPIT 5 ML BY MOUTH 4 TIMES DAILY 01/22 completed Not Available Not Available Not Available venlafaxi ne ER 75 mg capsule,e xtended release 24 hr TAKE 1 CAPSULE BY MOUTH ONCE DAILY 01/21 completed Not Available Not Available Not Available atorvasta tin 20 mg tablet TAKE 1 TABLET BY MOUTH ONCE DAILY IN THE EVENING 08/08 completed Not Available Not Available Not Available clindamyc in HCl 300 mg capsule TAKE 1 CAPSULE BY MOUTH EVERY 6 HOURS 02/12 completed Not Available Not Available Not Available cetirizin e 10 mg tablet TAKE 1 TABLET BY MOUTH ONCE DAILY active Not Available Not Available No t Available azithromy amaury 250 mg tablet TAKE 2 TABLETS BY MOUTH ON DAY 1, AND THEN TAKE 1 TABLET BY MOUTH ONCE A DAY ON DAY 2 THROUGH DAY 5 01/22 completed Not Available Not Available Not Available ibuprofen 800 mg tablet TAKE 1 TABLET BY MOUTH EVERY 8 HOURS FOR PAIN 08/05 completed Not Available Not Available Not Available nystatin 100,000 unit/gram topical ointment APPLY OINTMENT TOPICALL Y TO AFFECTED AREA(S) TWICE DAILY 10/03 completed Not Available Not Available Not Available fluconazo le 150 mg tablet TAKE ONE TABLET BY MOUTH A ONE-TIME DOSE AND REPEAT IN 7 DAYS IF NEEDED 10/03 completed Not Available Not Available Not Available valacyclo vir 1 gram tablet TAKE 2 TABLETS BY MOUTH NOW THEN TAKE 2 TABLETS BY MOUTH 12 HOURS LATER 11/06 completed Not Available Not Available Not Available cephalexi n 250 mg capsule TAKE 1 CAPSULE BY MOUTH EVERY 6 HOURS FOR 10 DAYS 12/20 completed Not Available Not Available Not Available fluconazo le 200 mg tablet TAKE 1 TABLET BY MOUTH EVERY OTHER DAY FOR 3 DOSES 06/09 completed Not Available Not Available Not Available meloxicam 15 mg tablet TAKE 1 TABLET BY MOUTH ONCE DAILY active Not Available Not Available No t Available Effexor XR 37.5 mg capsule,e xtended release take 1 capsule by oral route every day with food 02/18 completed Prescrib ed Elsewher e: Yes Loca tion: [facility] odify By: zeinab Moody r DateTime : 12/02/19 10:30:00 AM Not Available Not Available Not Available metronida zole 0.75 % (37.5 mg/5 gram) vaginal gel INSERT 1 APPLICAT ORFUL VAGINALL Y ONCE DAILY AT BEDTIME 11/06 completed Not Available Not Available Not Available ondansetr on HCl 4 mg tablet TAKE 1 TABLET BY MOUTH EVERY 6 HOURS NEEDED FOR NAUSEA AND FOR VOMITING 11/06 completed Not Available Not Available Not Available famotidin e 40 mg tablet TAKE 1 TABLET BY MOUTH TWICE DAILY 01/22 completed Not Available Not Available Not Available prednison e 20 mg tablet TAKE 2 TABLETS BY MOUTH ONCE DAILY FOR 5 DAYS 01/22 completed Not Available Not Available Not Available Generlac 10 gram/15 mL oral solution TAKE 30ML BY MOUTH TWICE DAILY 12/23 completed Not Available Not Available Not Available Geodon 20 mg capsule take 1 capsule by oral route 2 times every day with food 08/07 completed Prescrib ed Elsewher e: Yes Loca tion: [facility] odify By: zeinab Moody r DateTime : 12/02/19 10:30:00 AM Not Available Not Available Not Available venlafaxi ne ER 150 mg capsule,e xtended release 24 hr TAKE 2 CAPSULES BY MOUTH ONCE DAILY active Not Available Not Available No t Available Advair Diskus 100 mcg-50 mcg/dose powder for inhalatio n INHALE 1 DOSE BY MOUTH TWICE DAILY active Not Available Not Available No t Available metronida zole 500 mg tablet TAKE 1 TABLET BY MOUTH TWICE DAILY FOR 7 DAYS 10/03 completed Not Available Not Available Not Available ciproflox acin 500 mg tablet TAKE 1 TABLET BY MOUTH TWICE DAILY 01/22 completed Not Available Not Available Not Available sulfameth oxazole 800 mg-trimet hoprim 160 mg tablet take 1 tablet by oral route every 12 hours 08/07 completed Prescrib ed Elsewher e: No Locat ion: [facility] odify By: zeinab Moody r DateTime : 05/16/20 09:15:00 AM Not Available Not Available Not Available Wellbutri n SR 100 mg tablet, 12 hr sustained -release take 1 tablet by oral route 2 times every day 08/08 completed Not Available Not Available Not Available triamcino lone acetonide 0.1 % topical cream APPLY CREAM EXTERNAL LY TO AFFECTED AREA TWICE DAILY 01/22 completed Not Available Not Available Not Available amoxicill in 500 mg tablet TAKE 1 TABLET BY MOUTH EVERY 8 HOURS UNTIL GONE 01/22 completed Not Available Not Available Not Available terconazo le 80 mg vaginal supposito ry insert 1 supposit ory by vaginal route every day at bedtime 08/07 completed Prescrib ed Elsewher e: No Locat ion: [facility] odify By: zeinab Moody r DateTime : 12/02/19 10:30:00 AM Not Available Not Available Not Available nystatin- triamcino lone 100,000 unit/gram -0.1 % topical ointment APPLY TO THE AFFECTED AREA(S) BY TOPICAL ROUTE 2 TIMES PER DAY x 5-7 days prn 10/03 completed Not Available Not Available Not Available oxycodone -acetamin ophen 5 mg-325 mg tablet TAKE 1 TABLET BY MOUTH EVERY 4 TO 6 HOURS NEEDED FOR PAIN 10/03 completed Not Available Not Available Not Available estradiol 1 mg tablet TAKE 1 TABLET BY MOUTH ONCE DAILY 08/05 completed Not Available Not Available Not Available phenazopy ridine 100 mg tablet TAKE 1 TABLET BY MOUTH THREE TIMES DAILY NEEDED FOR 7 DAYS 11/10 completed Not Available Not Available Not Available baclofen 10 mg tablet TAKE 1 TABLET BY MOUTH THREE TIMES DAILY NEEDED FOR MUSCLE SPASM MAY CAUSE DROWSINE SS 10/05 completed Not Available Not Available Not Available benzonata te 100 mg capsule TAKE 1 CAPSULE BY MOUTH THREE TIMES DAILY NEEDED FOR COUGH 01/22 completed Not Available Not Available Not Available cephalexi n 500 mg capsule TAKE 1 CAPSULE BY MOUTH THREE TIMES DAILY 01/22 completed Not Available Not Available Not Available pantopraz ole 40 mg tablet,de layed release TAKE 1 TABLET BY MOUTH ONCE DAILY 01/22 completed Not Available Not Available Not Available erythromy amaury 5 mg/gram (0.5 %) eye ointment 11/06 completed Not Available Not Available Not Available oseltamiv ir 75 mg capsule TAKE 1 CAPSULE BY MOUTH TWICE DAILY 11/10 completed Not Available Not Available Not Available metformin 1,000 mg tablet TAKE 1/2 (ONE-ANY F) TABLET BY MOUTH TWICE DAILY WITH MORNING MEAL AND WITH EVENING MEAL active Not Available Not Available No t Available tobramyci n 0.3 % eye drops INSTILL 1 DROP INTO EACH EYE EVERY 4 HOURS FOR 7 DAYS 11/06 completed Not Available Not Available Not Available triamcino lone acetonide 0.1 % topical ointment APPLY A THIN LAYER OF OINTMENT TOPICALL Y TO AFFECTED AREA(S) TWICE DAILY FOR 7 DAYS NEEDED 10/03 completed Not Available Not Available Not Available nystatin 100,000 unit/gram topical cream APPLY CREAM TOPICALL Y TO AFFECTED AREA(S) TWICE DAILY FOR 5 TO 7 DAYS NEEDED (MIX WITH TRIAMCIN OLONE CREAM) 06/09 completed Not Available Not Available Not Available clotrimaz ole-betam ethasone 1 %-0.05 % topical cream APPLY CREAM TOPICALL Y TO AFFECTED AND SURROUND IND AREA(S) TWICE DAILY IN THE MORNING AND IN THE EVENING FOR 14 DAYS 08/05 completed Not Available Not Available Not Available betametha sone dipropion ate 0.05 % topical cream APPLY A THIN LAYER TO THE AFFECTED AREA(S) BY TOPICAL ROUTE ONCE DAILY 10/03 completed Not Available Not Available Not Available estradiol 2 mg tablet TAKE 1 TABLET BY MOUTH ONCE DAILY 01/22 completed Not Available Not Available Not Available dextroamp hetamine- amphetami ne ER 10 mg 24hr capsule,e xtend release TAKE 1 CAPSULE BY MOUTH ONCE DAILY IN THE MORNING 11/06 completed Not Available Not Available Not Available monteluka st 10 mg tablet TAKE 1 TABLET BY MOUTH ONCE DAILY FOR 30 DAYS 08/08 completed Not Available Not Available Not Available clindamyc in 2 % vaginal cream APPLY 1 APPLICAT ORFUL VAGINALL Y ONCE DAILY AT BEDTIME 11/06 completed Not Available Not Available Not Available norethind pelon acetate 5 mg tablet Take 1 tablet by mouth once daily 2024 active Not Available Not Available Not Avai lable azelastin e 137 mcg (0.1 %) nasal spray USE 1 SPRAY(S) IN EACH NOSTRIL TWICE DAILY active Not Available Not Available No t Available cefuroxim e axetil 500 mg tablet TAKE 1 TABLET BY MOUTH TWICE DAILY 01/22 completed Not Available Not Available Not Available polyethyl jazz glycol 3350 17 gram/dose oral powder MIX 1 CAPFUL WITH LIQUID AND DRINK ONCE DAILY FOR 10 DAYS 01/22 completed Not Available Not Available Not Available methylpre dnisolone 4 mg tablets in a dose pack TAKE BY MOUTH DIRECTED ON INSIDE OF PACKAGE 01/22 completed Not Available Not Available Not Available albuterol sulfate HFA 90 mcg/actua tion aerosol inhaler INHALE 1 PUFF BY MOUTH EVERY 4 HOURS NEEDED FOR WHEEZING active Not Available Not Available No t Available Vitamin D2 1,250 mcg (50,000 unit) capsule TAKE 1 CAPSULE BY MOUTH ONCE A WEEK 06/09 completed Not Available Not Available Not Available norethind pelon (contrace ptive) 0.35 mg tablet TAKE 1 TABLET BY MOUTH ONCE DAILY 11/06 completed Not Available Not Available Not Available oxybutyni n chloride 5 mg tablet TAKE 1 TABLET BY MOUTH THREE TIMES DAILY 12/23 completed Not Available Not Available Not Available hydroxyzi ne HCl 10 mg tablet TAKE 1 TO 2 TABLETS BY MOUTH TWICE DAILY NEEDED FOR ANXIETY 01/22 completed Not Available Not Available Not Available ondansetr on 4 mg disintegr ating tablet DISSOLVE 1 TABLET IN MOUTH EVERY 8 HOURS NEEDED 01/22 completed Not Available Not Available Not Available fluticaso ne propionat e 50 mcg/actua tion nasal spray,boy pension USE 2 SPRAY(S) IN EACH NOSTRIL ONCE DAILY 12/10 completed Not Available Not Available Not Available clotrimaz ole 1 % topical cream APPLY CREAM TOPICALL Y TO AFFECTED AND SURROUND ING AREAS TWICE DAILY 10/03 completed Not Available Not Available Not Available doxycycli ne hyclate 100 mg tablet TAKE 1 TABLET BY MOUTH TWICE DAILY FOR 10 DAYS 01/22 completed Not Available Not Available Not Available naproxen 500 mg tablet TAKE 1 TABLET BY MOUTH TWICE DAILY WITH MEALS FOR 15 DAYS 01/22 completed Not Available Not Available Not Available metoclopr amide 10 mg tablet TAKE 1 TABLET BY MOUTH 4 TIMES DAILY BEFORE MEAL(S) AND NIGHTLY 01/22 completed Not Available Not Available Not Available amoxicill in 875 mg-potass ium clavulana te 125 mg tablet TAKE 1 TABLET BY MOUTH TWICE DAILY 02/12 completed Not Available Not Available Not Available Concerta 27 mg tablet,ex tended release TAKE 1 TABLET BY MOUTH ONCE DAILY IN THE MORNING 12/23 completed Not Available Not Available Not Available Adult Aspirin 81 mg tablet 06/09 completed Not Available Not Available Not Available Daily Multi Vitamin tablet 01/22 completed Not Available Not Available Not Available dextroamp hetamine- amphetami ne ER 15 mg 24hr capsule,e xtend release TAKE 1 CAPSULE BY MOUTH ONCE DAILY IN THE MORNING 11/06 completed Not Available Not Available Not Available azithromy amaury 500 mg tablet TAKE 1 TABLET BY MOUTH ONCE DAILY 08/05 completed Not Available Not Available Not Available Riomet 500 mg/5 mL oral solution take 10 millilit er by oral route 2 times every day with meals 09/05 completed Prescrib ed Elsewher e: Yes Loca tion: [facility] odify By: zeinab Moody r DateTime : 12/02/19 10:30:00 AM Not Available Not Available Not Available nitrofura ntoin monohydra te/macroc rystals 100 mg capsule TAKE 1 CAPSULE BY MOUTH TWICE DAILY WITH MORNING MEAL AND WITH EVENING MEAL 01/22 completed Not Available Not Available Not Available Albuterol Sulfate HFA 90 mcg/Actua tion aerosol inhaler 12/23 completed Not Available Not Available Not Available One Way Valved Mouthpiec e device 08/07 completed Prescrib ed Elsewher e: Yes Loca tion: [facility] odify By: [email or web address] Encounte r DateTime : 12/02/19 10:30:00 AM Not Available Not Available Not Available chlorhexi dine gluconate 0.12 % mouthwash SWISH AND SPIT 15 ML IN MOUTH TWICE DAILY 08/05 completed Not Available Not Available Not Available Cranberry -Probioti c-Vitamin C 12/23 completed Not Available Not Available Not Available Dulera 100 mcg-5 mcg/actua tion HFA aerosol inhaler INHALE 2 PUFFS BY MOUTH TWICE DAILY 08/08 completed Not Available Not Available Not Available Linzess 145 mcg capsule TAKE 1 CAPSULE BY MOUTH ONCE DAILY BEFORE BREAKFAS T ON AN EMPTY STOMACH AND AT LEAST 3 MINUTES PRIOR TO FIRST MEAL OF THE DAY. 01/22 completed Not Available Not Available Not Available Vitals Date Recorded Body height Body mass index (BMI) Body weight Systolic And Diastolic Provider Name and Address Organization Details Last Updated DateTime 08/05/2023 161.29 cm 53.5 kg/m2 076401.86 g 128/86 mm[Hg] Natasha Gandhi [facility] 08/05/2023 15:37:45 Date Recorded Body height Body mass index (BMI) Body weight Systolic And Diastolic Provider Name and Address Organization Details Last Updated DateTime 10/04/2023 161.29 cm 53.9 kg/m2 698096.04 g 145/96 mm[Hg] Shreya Melendez [facility] 10/04/2023 10:44:56 Date Recorded Body height Body mass index (BMI) Body weight Systolic And Diastolic Provider Name and Address Organization Details Last Updated DateTime 12/21/2023 161.29 cm 54.4 kg/m2 018400.82 g 120/80 mm[Hg] Nikole Price [facility] 12/21/2023 11:26:11 Date Recorded Body height Body mass index (BMI) Body weight Systolic And Diastolic Provider Name and Address Organization Details Last Updated DateTime 01/22/2025 161.29 cm 56 kg/m2 410763.15 g 150/98 mm[Hg] Rosario Cardona [facility] 01/22/2025 14:39:29 Date Recorded Body height Body mass index (BMI) Body weight Systolic And Diastolic Provider Name and Address Organization Details Last Updated DateTime 07/05/2023 161.29 cm 53.5 kg/m2 697276.86 g 147/61 mm[Hg] Natasha Gandhi [facility] 07/05/2023 10:59:19 Social History Question Answer Notes LastModified by Organizat ion Details LastModified Time Tobacco Smoking Status Never Smoker Rosario Cardona jaden, [facility] 08/05/2023 15:27:19 Do You Have An Advance Directive? No Information n ot available 11/06/2020 How Many Years Have You Consumed Alcohol? 15 Information not available 11/06/2020 Are You Blind Or Do You Have Difficulty Seeing? No Information n ot available 11/06/2020 What Is Your Level Of Caffeine Consumption? Occasional Information not available 09/01/2021 How Much Tobacco Do You Chew? None Information not available 11/06/2020 In The 14 Days Before Symptom Onset, Have You Had Close Contact With A Laboratory-confirm ed COVID-19 While That Case Was Ill? No Information n ot available 11/06/2020 In The 14 Days Before Symptom Onset, Have You Had Close Contact With A Person Who Is Under Investigation For COVID-19 While That Person Was Ill? No Information not available 11/06/2020 Have You Been To An Area Known To Be High Risk For COVID-19? No Information not available 11/06/2020 Are You Deaf Or Do You Have Serious Difficulty Hearing? No Information not available 11/06/2020 What Type Of Diet Are You Following? DIABETIC Information n ot available 09/01/2021 What Is The Highest Grade Or Level Of School You Have Completed Or The Highest Degree You Have Received? [id number] Information not available 11/06/2020 Are There Any Guns Present In Your Home? No Information not available 11/06/2020 Do You Use Protection During Sex? Usually Information not available 11/06/2020 Do You Use Your Seat Belt Or Car Seat Routinely? Yes Information not available 11/06/2020 Do You Have Smoke And Carbon Monoxide Detectors In Your Home? Yes Information not available 11/06/2020 How Much Tobacco Do You Smoke? No Information not available 11/06/2020 Do You Use Sunscreen Routinely? Yes Information not available 11/06/2020 Have You Used IV Drugs? No Information not available 11/06/2020 Do You Have Difficulty Walking Or Climbing Stairs? No Information not available 08/05/2023 Sex: Unknown Functional Status Question Answer Note LastModified by Organizat ion Details LastModified Time Do you use any illicit or recreational drugs? No Information not available 11/06/2020 What is your level of alcohol consumption? Occasional Information not available 11/06/2020 Are you able to walk? YESWOREST Information not available 11/06/2020 Are you able to care for yourself? Yes [email or web address] Information n ot available 08/05/2023 What is your occupation? Unemployed Information not available 11/06/2020 Do you have difficulty dressing or bathing? No [email or web address] Information not available 08/05/2023 What is your exercise level? Occasional Information not available 11/06/2020 Mental Status Question Answer Note LastModified by Organization D etails LastModified Time Do you feel stressed (tense, restless, nervous, or anxious, or unable to sleep at night)? [id number] Information not available 09/01/2021 Family History Relationship Description Onset Age of this Age Resolved Age Notes LastModified by Organization Details LastModified Time Mother Depressive disorder Not available 2020 16:50:25 Mother Heart disease Not available 2020 16:50:25 Mother Malignant tumor of breast Not available 2020 16:50:25 Mother Anemia Not available 11/06/2020 16:50:25 Mother Disorder of thyroid gland Not available 2020 16:50:25 Mother Osteoporosis Not avai lable 11/06/2020 16:50:25 Mother Hypercholest erolemia Not available 2023 15:37:59 Mother Anxiety disorder Not available 2023 15:37:59 Father Depressive disorder Not available 2020 16:50:25 Father Mental disorder Not available 2020 16:50:25 Father Heart disease Not available 2020 16:50:25 Father Diabetes mellitus Not available 2023 15:37:59 Daughter Asthma Not availabl e 11/06/2020 16:50:25 Daughter Anxiety disorder Not available 2020 16:50:25 Daughter Anemia Not availabl e 08/05/2023 15:37:59 Daughter Depressive disorder Not available 2023 15:37:59 Daughter Mental disorder Not available 2023 15:37:59 Brother Depressive disorder Not available 2023 15:37:59 Brother Diabetes mellitus Not available 2023 15:37:59 Brother Mental disorder Not available 2023 15:38:00 Paternal Grandmother Heart disease Not available 2023 15:38:00 Paternal Grandmother Osteoporosis Not available 08/05/2023 15:38:00 Maternal Grandmother Heart disease Not available 2023 15:38:00 Maternal Grandmother Osteoporosis Not available 08/05/2023 15:38:00 Maternal Grandfather Heart disease Not available 2023 15:38:00 Maternal Grandfather Osteoporosis Not available 08/05/2023 15:38:00 Paternal Grandfather Heart disease Not available 2023 15:38:00 Paternal Grandfather Osteoporosis Not available 08/05/2023 15:38:00 Medical History Condition Response Allergies (Food, seasonal, environmental ) N Other N Breast Cancer N Drug/Latex Allergies/Reactions Y Blood Transfusion N Dermatologic Disorders N Lung Disease N Defects or Inherited Disease N Breast Problem N Gestational Diabetes Y Hematologic disorders N Anesthesia Complications N History of STI Y Deep Vein Thrombosis N Polycystic ovary syndrome Y Anxiety Disorder Y Autoimmune disease N Arthritis Y Infertility N Polyps Y Acid Reflux (GERD) Y History of abnormal pap Y Cancer N Stroke N Varicosities N Neurologic/Epilepsy N Endometriosis N High Cholesterol Y Headaches N Fibromyalgia N Kidney Disease N Heart Problems N Kidney or Bladder Problems Y Thyroid Problems N GI Problems Y Eating Disorder N Anemia Y Art (IVF or FET) N Psychiatric Illness N Ovarian Cancer N Diabetes N Pulmonary (TB, Asthma) N Hepatitis/Liver Disease N No Past Medical History N Eczema Y Urinary Tract Infection Y Abuse/Domestic Violence N Asthma Y Trauma/Violence N Depression/ depression Y Heart Disease N Pre-Eclampsia N Hypertension Y Osteoporosis Y Thrombophilias N Gynecological History Statement/Question Response Date of Last Mammogram 03/18/2023 Flow Light Date of LMP N Was last menstrual period normal N STIs/STDs Yes Date of Last Colonoscopy 05/30/2011 BCPs Desired Control Method BCPs Abnormal Pap Yes On BCP's at Conception? Y Colposcopy 11/29/2020 HPV Vaccine N Duration of Flow (days) 6 Current Control Method BCPs Age at First Child 25 Are cycles usually normal N Frequency of Cycle (Q days) 29 Sexually Active? Y Menses Monthly N Age of first menstrual cycle 10 Date of Last Pap Smear 12/21/2023 Sexual Problems? N LMP Unknown 11/30/2020 N 08/08/2021 Obstetrics History GPAL:G 2 P 2 0 0 2 Type Value Full Term 2 Living 2 Total 2 Past Encounters Encounter ID Performer Location Encounter Start Date Encounter Closed Date Diagnosis/Indication Diagnosis SNOMED-CT Code Diagnosis ICD10 Code Diagnosis Note [id number] Torrey Headley MD [facility] [address] [address] 11/06/2020 16:30:08 11/06/2020 17:22:14 Gynecologic examination [id number] Z01.419 This patient is here for her annual exam. A thorough history was taken. A physical exam was performed. Age appropriat e routine health screening was ordered, performed, and discussed. Recommende d testing was ordered. She was asked to follow up in one year. She will be informed of any test results. Mammogram - [ ordered ] Cholestero l - [Done ] Pap - today [id number] Torrey Headley MD [facility] [address],[place] [address] 11/29/2020 10:14:49 11/29/2020 11:47:00 Screening procedure 05091586 Z13.9 Dysplasia of cervix 7339 1008 N87.9 colposcopy was performed. Biopsies were taken. It was a satisfacto ry exam. Biopsies were taken at the posterior lip of the cervix and the transition zone anteriorly . She tolerated it well. [id number] Torrey Headley MD [facility] [address],[place] [address] 12/23/2020 17:15:41 12/24/2020 17:53:35 Dysplasia of cervix 10569324 N87.9 We discussed HPV, cervical dysplasia, cervical cancer. We discussed HPV transmissi on, natural history, and dormancy. We discussed cervical dysplasia screening, diagnosis, treatment. She was given precaution s about follow-up. She was warned of the potential cervical cancer as an outcome in this situation. We discussed LEEP procedure. We discussed the procedure in detail. I showed her video. We discussed the risks, benefits, and alternativ es. We spent 25 minutes face-to-fa ce. [id number] Torrey Headley MD [facility] [address],[place] [address] 01/10/2021 11:53:04 01/12/2021 00:10:28 Screening procedure 08135676 Z13.9 Dysplasia of cervix 7339 1008 N87.9 LEEP procedure was performed. She tolerated the procedure well. [id number] Torrey Headley MD [facility] [address],[place] [address] 11/10/2021 17:18:32 11/10/2021 17:57:19 Pruritus of vulva 86606520 L29.2 Gynecologi c examination 38771674 Z01.419 Z11.51 This patient is here for her annual exam. A thorough history was taken. A physical exam was performed. Age appropriat e routine health screening was ordered, performed, and discussed. Recommende d testing was ordered. She was asked to follow up in one year. She will be informed of any test results. Mammogram - [ ordered ] Cholestero l - [Done ] Pap - today [id number] Torrey Headley MD [facility] [address],[place] [address] 01/17/2021 11:22:52 01/21/2021 15:09:52 Dysplasia of cervix 69533922 N87.9 this patient is 40-year-ol d female presents for follow-up on LEEP procedure. She has no abnormal recovery symptoms. We discussed her results. She had low-grade dysplasia that was fully encompasse d in the LEEP specimen with free margins. she will return for Pap smears every 6 months. She understand s this. [id number] Adelaida Kennedy [facility] [address],[place] [address] 02/18/2021 11:27:34 02/18/2021 13:44:05 Vaginitis 70941158 N76.0 Treated for suspected BV/Yeast.S mu Cook es need std screening Will contact with results. Time spent in visit is a total of 15 mins with at least 50% of visit consisting of counseling and review of plan of care.Addit ional precaution brian measures were taken to minimize potential exposure to the Covid-19 virus during this patient s visit, including available hand automotive welder upon arrive, temperatur e check and being asked a series of screening questions. All staff wore face coverings during this encounter, as well as provided additional cleaning and sanitizing of all surfaces, including countertop s, pens, chairs, door handles, light switches, etc, prior to and following the patient s visit. [id number] Torrey Headley MD [facility] [address],[place] [address] 03/14/2021 14:42:33 03/14/2021 16:58:10 Urinary symptoms [id number] R39.9 Vaginitis 71261740 N76.0 To treat for vulvovagin itis with terconazol e 0.4%. To follow-up on results and consider treatment for bacterial vaginosis. [id number] Deenen García MD [facility] [address],[place] [address] 06/09/2021 16:12:09 06/09/2021 16:53:18 Urinary symptoms 863592714 R39.9 [id number] Torrey Headley MD [facility] [address],[place] [address] 08/08/2021 11:53:50 08/08/2021 12:43:45 Dysplasia of cervix 96984880 N87.9 this patient is a 41-year-ol d female presents for repeat Pap after LEEP procedure. She has no complaints other than some vulvar irritation and some discharge. We agreed to treat for yeast infection. Repeat Pap was performed. The cervix appeared like a normal post LEEP cervix. She will follow-up in 6 months for another repeat Pap smear. Vaginitis 83434762 N76.0 [id number] Torrey Headley MD [facility] [address],[place] [address] 09/01/2021 10:17:16 09/02/2021 15:15:05 Dysplasia of cervix 82384544 N87.9 colposcopi c examinatio n was performed, ECC was performed. [id number] Adelaida Kennedy [facility] [address],[place] [address] 09/16/2021 14:23:54 09/16/2021 15:02:25 Urinary symptoms 550251916 R39.9 Suspect UTIWIll treat for UTI & Vaginal irritation ext found on exam today.If swab returns & needs additional treatment will contact.De clined need std screen. Vaginitis 70064761 N76.0 Time spent in visit is a total of 15 mins with at least 50% of visit consisting of counseling and review of plan of care.Addit ional precaution brian measures were taken to minimize potential exposure to the Covid-19 virus during this patient s visit, including available hand automotive welder upon arrive, temperatur e check and being asked a series of screening questions. All staff wore face coverings during this encounter, as well as provided additional cleaning and sanitizing of all surfaces, including countertop s, pens, chairs, door handles, light switches, etc, prior to and following the patient s visit. [id number] Torrey Headley MD [facility] [address] [address] 10/02/2021 10:57:07 10/02/2021 11:23:48 [id number] Torrey Headley MD [facility] [address] [address] 10/02/2021 11:26:48 10/03/2021 14:25:24 Urinary tract infectious disease 04961031 N39.0 Pain in pelvis 03319477 R10.2 This patient is a 41-year-ol d female with pelvic pain. We have agreed to complete the evaluation with pelvic ultrasound . The patient will return after the pelvic ultrasound to discuss those findings and to develop a treatment plan. A comprehens laurel history and physical exam was performed today. We spent over 35 minutes face-to-fa ce. The patient was given precaution s. She will contact clinic if pelvic pain increases in frequency or intensity. Also notify clinic of any new symptoms associated with pelvic pain. She does not appear to have an acute pelvic infection today, but was asked to contact us Immediatel y with nausea, vomiting, fever, chills. spent more than 35 minutes on to complex forms including a complex urinary tract infection overlappin g a pelvic pain comorbidit y. [id number] Torrey Headley MD [facility] [address] [address] 10/07/2021 14:32:35 10/07/2021 15:07:20 Pain in pelvis 08971809 R10.2 This patient is a 41-year-ol d female with pelvic pain. We have agreed to complete the evaluation with pelvic ultrasound . The patient will return after the pelvic ultrasound to discuss those findings and to develop a treatment plan. A comprehens laurel history and physical exam was performed today. We spent over 35 minutes face-to-fa ce. The patient was given precaution s. She will contact clinic if pelvic pain increases in frequency or intensity. Also notify clinic of any new symptoms associated with pelvic pain. She does not appear to have an acute pelvic infection today, but was asked to contact us Immediatel y with nausea, vomiting, fever, chills. spent more than 35 minutes on to complex forms including a complex urinary tract infection overlappin g a pelvic pain comorbidit y. [id number] Torrey Headley MD [facility] [address] [address] 10/08/2021 16:51:10 10/09/2021 15:19:28 Pain in pelvis 80984618 R10.2 this patient is a 41-year-ol d female who presented for pelvic pain. A pelvic ultrasound was obtained after examinatio n and evaluation . It was a normal pelvic ultrasound . It is uncertain the etiology of her pain. Patient is not a great historian. We agreed ultimately to observe her pain. She will follow-up as needed. [id number] Torrey Headley MD [facility] [address] [address] 12/05/2021 12:00:54 12/05/2021 16:25:57 Dysplasia of cervix 12908619 N87.9 colposcopi c examinatio n was performed. Biopsies were obtained, there appeared to be dysplasia. Will follow-up on the results and contact the patient. She tolerated all well. [id number] Torrey Headley MD [facility] [address] [address] 12/12/2021 14:00:07 12/16/2021 13:40:44 Cervical intraepithelial neoplasia grade III with severe dysplasia [id number] D06.9 this patient is a 41-year-ol d female who presents for follow-up of colposcopy . THis patient has been treated with LEEP procedure with negative margins. She had severe dysplasia. Now she has recurrence of her cervical dysplasia. We talked about treatment options in detail. We spent 25 minutes face-to-fa ce. We talked about repeat LEEP procedure. Talked about continued surveillan ce. Patient would like definitive treatment and cure for the problem. We have agreed to perform total laparoscop ic hysterecto my bilateral salpingect wyatt. We will moved to schedule the surgery and get it approved through her insurance. We discussed her biopsy results. We discussed her history in detail. We discussed the etiology and natural history of her disease. We discussed risks of observatio n, the surgery, more procedures . [id number] FILIPPO Patterson [facility] [address] [address] 01/21/2022 12:09:49 01/21/2022 15:07:46 Vaginitis 98713845 N76.0 Suspect yeast on examDiscus sed vulvar care guidelines in-depthRx sent to patient pharmacyVa ginitis panel sentSTI endocervic al testing sentRTC if symptoms persist past treatment Time spent in visit is a total of 25 mins with at least 50% of visit consisting of counseling and review of plan of care. [id number] Torrey Headley MD [facility] [address] [address] 06/03/2022 15:59:03 06/03/2022 17:40:43 Pain in pelvis 06389376 R10.2 Dysplasia of cervix 7339 1008 N87.9 This patient is a 42-year-ol d female presents for follow-up on cervical dysplasia and pelvic pain. She had a pelvic ultrasound . We discussed pelvic ultrasound results. Discussed her pelvic pain. We discussed treatment options. We agreed to observe her pelvic pain for we spent over 20 minutes face-to-fa ce. More than 50% was counseling . We repeated her Pap smear. The vulva, vagina, and cervix appeared normal. We will Determine follow up with her after we see the Pap smear results. [id number] FILIPPO Patterson [facility] [address] [address] 05/12/2022 11:21:18 05/12/2022 13:32:02 Abdominal pain 58223397 R10.9 Suspect constipati on is contributi ng to her symptoms. Continue to f/u with GI, increase fiber, daily stool softener, miralax as needed to help with constipati on.Recentl y had (-) STI testing, not SA x 1 yearWe agreed to pelvic u/s for further evaluation of pelvic painMay need evaluation for endometrio sis given longevity of symptomsWe also discussed possibilit y of PBS/IC. Discussed triggers for this. She has been seeing a urologist for frequent UTI's. Continue to f/u with urology.Pe lvic floor physical therapy discussed, she will considerRT C for pelvic u/s and MD consult for further evaluation of pelvic painED precaution s discussed Time spent in visit is a total of 30mins with at least 50% of visit consisting of counseling and review of plan of care. Pain in pelvis 73660867 R10.2 [id number] Torrey Headley MD [facility] [address],[place] [address] 05/13/2022 17:30:50 05/13/2022 19:07:47 Pain in pelvis 13436361 R10.2 this patient is a 41-year-ol d female who presented for pelvic pain. A pelvic ultrasound was obtained after examinatio n and evaluation . It was a normal pelvic ultrasound . It is uncertain the etiology of her pain. Patient is not a great historian. We agreed ultimately to observe her pain. She will follow-up as needed. [id number] Torrey Headley MD [facility] [address],[place] [address] 06/27/2022 11:13:48 06/30/2022 12:58:41 Screening procedure 18453582 Z13.9 Dysplasia of cervix 7339 1008 N87.9 colposcopy performed, lesions present, biopsies performed, ECC Done. Status post LEEP procedure. [id number] FILIPPO Patterson [facility] [address],[facility] [address] 10/05/2022 15:18:23 10/05/2022 15:59:40 Vaginitis 62955821 N76.0 Suspect BV/yeast on examUA - normal, cx sentVagini tis panel sentSTI endocervic al testing sentReselect [facility] ed vulvar care guidelines (sleep with no underwear, cotton underwear only, free and clear laundry products, water/fing ers to cleanse the vulva)Rx sent, R/B/A of medication discussedR TC if symptoms persist past treatment Venereal d isease screening 910867354 Z11.3 Vulval irritation 402198 003 N90.89 Urinary symptoms 6184271 08 R39.9 [id number] Torrey Headley MD [facility] [address],[place] [address] 12/10/2022 14:07:01 12/10/2022 15:11:00 Vulvovaginitis 92342473 N76.0 Gynecologi c examination 38533124 Z01.419 Z11.51 This patient is here for her annual exam. A thorough history was taken. A physical exam was performed. Age appropriat e routine health screening was ordered, performed, and discussed. Recommende d testing was ordered. She was asked to follow up in one year. She will be informed of any test results. Mammogram - [ ordered ] Cholestero l - [Done ] Pap - today [id number] Torrey Headley MD [facility] [address],[place] [address] 12/21/2023 10:51:45 12/21/2023 12:14:33 Gynecologic examination 94757133 Z01.419 Z11.51 This patient is here for her annual exam. A thorough history was taken. A physical exam was performed. Age appropriat e routine health screening was ordered, performed, and discussed. Recommende d testing was ordered. She was asked to follow up in one year. She will be informed of any test results. Mammogram - [ ordered ] Cholestero l - [Done ] Pap - today [id number] Torrey Headley MD [facility] [address],[place] [address] 02/12/2023 15:03:11 02/12/2023 16:41:26 Screening procedure 58634897 Z13.9 Dysplasia of cervix 7339 1008 N87.9 this patient is a 42-year-ol d female who presents for follow-up on cervical dysplasia and abnormal Pap smear. We performed colposcopi c examinatio n. There was a possible lesion on the posterior lip of the cervix at the transition zone. This also in the area of the LEEP scarring possibly. We will await biopsy and ECC specimens To determine follow-up. [id number] Torrey Headley MD [facility] [address],[place] [address] 06/04/2023 14:24:55 06/04/2023 15:19:52 Menopausal symptom 78666096 N95.1 this patient is a 43-year-ol d female presents menopausal symptoms. She is on norethindr one only pills. She is having night sweats and hot flashes. We agreed to a trial of estrogen. She will take 1 mg of estradiol for 1 month and return in 1 month. Talked about risks, benefits, alternativ es to hormone replacemen t therapy. Talked about the bleeding profile of norethindr one. Talked about her bleeding. We spent 20 minutes face-to-fa ce. More than 50% was counseling . [id number] Torrey Headley MD [facility] [address],[place] [address] 07/05/2023 10:52:27 07/05/2023 11:37:20 Menopausal symptom 08888865 N95.1 this patient is a 43-year-ol d female presents over follow-up on menopausal symptoms. . patient continued to have hot flashes. We agreed to increase her estradiol to 2 mg. She will continue take norethindr one with that. She has had some diminished symptoms, significan tly diminished . We agreed to increase her dose to 2 mg daily of estradiol to eliminate symptoms. She will discontinu e hormone replacemen t therapy 3-2 days before returning so that we might get some updated labs on menopause. We spent 20 minutes face-to-fa ce. More than 50% was counseling . [id number] FILIPPO Patterson [facility] [address],[facility] [place] [address] 08/05/2023 15:27:07 08/05/2023 16:36:42 Vaginitis 37390498 N76.0 suspect BV/yeastva ginitis panel sentdeclin ed STI testingvul [facility] care guidelines discussedr x sent, r/b/a reviewed Time spent in visit is a total of 18mins with at least 50% of visit consisting of counseling and review of plan of care. [id number] Torrey Headley MD [facility] [address],[facility] [place] [address] 10/04/2023 10:30:52 10/04/2023 16:34:35 Menopausal symptom 46821481 N95.1 43-year-ol d female with menopausal symptoms. She was previously treated with 2 mg of estradiol and progestero ne. Patient continues to have hot flashes. She states that they might be diminished . She is uncertain. Patient is very quiet. She has not taken her estrogen for a few days. We agreed to check her FSH and LH. She has not had labs on this subject previously . We just trialed estrogen. We spent 20 minutes face-to-fa ce. More than 50% was counseling . We discussed menopause, hormone replacemen t therapy, risk. We discussed the lack of more dosing options at this level. Abnormal u terine bleeding [id number] 9100 N93.9 [id number] FILIPPO Patterson [facility] [address] [address] 01/22/2025 13:50:20 01/22/2025 15:05:33 Gynecologic examination 71578584 Z01.419 WWEPap - done todaySTI screen - declinedMa mmogram - order givenColon cancer screening - PCPRoutine labs - PCPRTC in 1 yr or sooner if needed BP precaution s discussed, encouraged PCP f/u Suggested Calcium with Vitamin D daily. Patient advised to get an annual flu shot in the fall and she could obtain at local pharmacy. Also to obtain TDap vaccinatio n if you have not had one in the last 10 years. Recommend yearly mammograms . Encouraged monthly self breast exams. Encourage safe sexual practices, to use condoms and limit partners if not already in a monogamous relationsh ip. Engage in regular exercise. Avoid tobacco and illicit drugs. This lifestyle behavior pattern will lead to less health conditions and longer life span. If BMI greater than 25 dietary consult advised. All questions have been answered. Screening mammography 24 332112 Z12.31 Irregular periods 149093 07 N92.6 currently taking norethindr one daily. We discussed alternativ e options : reviewed POP, IUD, nexplanon, DMPA. Declines at this time, she wants to d/c norethindr one. Reviewed precaution s (should notify the office with any AUB and/or irregular periods). Discussed endometria l protection . Questions answered. Health Concerns Section Related Observation LastModified by Organization Detai ls LastModified Time None Recorded Concern Status LastModified by Organization Details LastModified Time None Recorded Advance Directives Directive N: Payers Insurance Date Sequence Insurance Name Policy Number Policy Kuhn Covered Member ID Kuhn Member ID Guarantor Name 05/20/2023 1 [facility] ON OR AFTER 01/16/21 (MEDICAID REPLACEMENT - HMO) Marlen Monahan Jazmine [id number] Marlen Taniya Lucero 05/20/2023 1 [facility] PRIOR TO 01/16/2021 (MEDICAID REPLACEMENT - HMO) Marlne Jazmine [id number] Marlen Monahan Jazmine 05/20/2023 1 [place] [facility] Marlen Jazmine [id number] Marlen Monahan Jazmine 01/20/2025 1 [facility] ON OR AFTER 01/16/21 (MEDICAID REPLACEMENT - HMO) Marlen Monahan aJzmine [id number] Marlen Taniya Lucero Notes Date Note Type Note Provider Name and Address Organization Details Recorded Time 3 text/html this patient is a 43-year-old female presents over follow-up on menopausal symptoms. . patient continued to have hot flashes. We agreed to increase her estradiol to 2 mg. She will continue take norethindrone with that. She has had some diminished symptoms, significantly diminished. We agreed to increase her dose to 2 mg daily of estradiol to eliminate symptoms. She will discontinue hormone replacement therapy 3-2 days before returning so that we might get some updated labs on menopause. We spent 20 minutes [id number]. More than 50% was counseling. Torrey Headley MD [address], [place], [address], [facility] 07/05/2023 11:30:09 4 text/html 43yopresents for evaluation of vaginal itching, odor, and dischargesymptoms present x 2 weeksthick/white discharge, fishy odor, vulvar itchingno new partnersneg pelvic painneg n/v/fneg flu-like symptoms FILIPPO Patterson [address], [place], [address], [facility] 08/05/2023 16:31:13 4 text/html 43-year-old female with menopausal symptoms. She was previously treated with 2 mg of estradiol and progesterone. Patient continues to have hot flashes. She states that they might be diminished. She is uncertain. Patient is very quiet. She has not taken her estrogen for a few days. We agreed to check her FSH and LH. She has not had labs on this subject previously. We just trialed estrogen. We spent 20 minutes [id number]. More than 50% was counseling. We discussed menopause, hormone replacement therapy, risk. We discussed the lack of more dosing options at this level. Torrey Headley MD [address], [place], [address], [facility] 10/04/2023 16:27:31 4 text/html Annual GYNReported bypatient.History:no gynecologic complaints Menstrual cycle:Normal menses Urinary symptoms:No hematuria; No incontinence Vulva:No genital lesion Vagina:Normal vaginal discharge Breast:No breast pain; No breast lump Sexual complaints:No sexual complaints; No pain during intercourse Menopausal Symptoms:No menopausal symptoms Psychological symptoms:No depression; No anxiety Preventive measures:Encourage self breast examination; Encourage regular exercise Torrey Headley MD [address], [place], [address], [facility] 12/21/2023 12:02:19 5 text/html Annual GYNReported bypatient.Menstrual cycle:Normal menses Urinary symptoms:No hematuria; No incontinence Vulva:No genital lesion Vagina:Normal vaginal discharge Breast:No breast pain; No breast lump; No nipple discharge Sexual complaints:No sexual complaints; No pain during intercourse; Normal libido Menopausal Symptoms:No menopausal symptoms; Normal vaginal lubrication Psychological symptoms:No depression; No anxiety; No PMDD Preventive measures:Encourage self breast examination; Encourage regular exercise; Encourage no tobacco use; Encourage regular mammograms starting age 40Notes:44yo wwelast pap 2023 : nilm, HPV (-)h/o LEEP 2020mammogram last 2022 has been taking norethindrone daily for the past few years d/t previous issues with AUB. Has questions about this today Rosario Brendan [facility] 01/22/2025 15:20:31 OBGyn Episode Ob Episode Information Episode Created Date Number of Fetuses Patient Bloodtype Patient rh Status Prepregnancy Weight lbs Domestic Partner Domestic Partner Phone Father Name Professional Services Specialist Status 11/06/19 21 1 CLOSED Fetus Data First Name Last Name Admitted to NICU Weight (g) Sex Living Outcome Pediatric Complications Fetus ID Race Codes Race Delivery Type 3486.76 1704 F Full Term 9278 Vaginal Delivery Hamzah Calculation Initial Hamzah Date Initial Exam Date Initial Exam Provider Initial Ultrasound Date Last Menstrual Period Date Ultra Sound Weeks Gestation 0 Eighteen To Twenty Week Hamzah Update Ultra Sound Date Fundal Height At Umbil Quickening Date Ultra Sound Latest Weeks Gestation Final Hamzah Confirmed By Final Hamzah Confirmed Date Final Hamzah Date Ultra Sound Latest Days Gestation 0 0 Menstrual History Last Menstrual Date Menses Monthly On Bcp Conception Prior Menses Frequency Hcg Plus Date Menarche Onset Age Delivery Information Delivery Date Delivery Type Labor Anesthesia Weeks Gestation Incision Type Labor Labor Length Hrs Delivered By Post Complications Tubal Sterilization Discharge Date Comments 6 39 Discharge Information Feeding Method Contraceptive Method Maternal HG B and HCT Levels Ob Episode Information Episode Created Date Number of Fetuses Patient Bloodtype Patient rh Status Prepregnancy Weight lbs Domestic Partner Domestic Partner Phone Father Name Professional Services Specialist Status 11/06/19 21 1 CLOSED Fetus Data First Name Last Name Admitted to NICU Weight (g) Sex Living Outcome Pediatric Complications Fetus ID Race Codes Race Delivery Type 3175.14 4 F Full Term 9277 Vaginal Delivery Hamzah Calculation Initial Hamzah Date Initial Exam Date Initial Exam Provider Initial Ultrasound Date Last Menstrual Period Date Ultra Sound Weeks Gestation 0 Eighteen To Twenty Week Hamzah Update Ultra Sound Date Fundal Height At Umbil Quickening Date Ultra Sound Latest Weeks Gestation Final Hamzah Confirmed By Final Hamzah Confirmed Date Final Hamzah Date Ultra Sound Latest Days Gestation 0 0 Menstrual History Last Menstrual Date Menses Monthly On Bcp Conception Prior Menses Frequency Hcg Plus Date Menarche Onset Age Delivery Information Delivery Date Delivery Type Labor Anesthesia Weeks Gestation Incision Type Labor Labor Length Hrs Delivered By Post Complications Tubal Sterilization Discharge Date Comments 8 39 Discharge Information Feeding Method Contraceptive Method Maternal HG B and HCT Levels
--- OUTSIDE RECORDS SUMMARY | 2025-02-01 09:41 | XMS_ITS | Clinical Summary ---
Author Organization [facility] [place] [facility] Address [address] [facility] [place] [address] Care Team Providers Care Civil Engineering Teacher Name Role Phone Ronel Fernandes Primary Care Provider [phone] Allergies Active Allergy Reactions Criticality Noted Date Comments Sulfamethoxazole-Trimethoprim Hives High 2019 Medications norethindrone acetate (AYGESTIN) 5 mg Tablet 0 Active metFORMIN (GLUCOPHAGE) 1,000 mg tablet 0 Active ibuprofen (MOTRIN) 600 mg tablet ibuprofen 600 mg tablet 9 Active Vitamin D2 1,250 mcg (50,000 unit) capsule TAKE 1 CAPSULE BY MOUTH ONCE A WEEK 0 Active albuterol HFA 90 mcg inhaler INHALE 1 PUFF BY MOUTH EVERY 4 HOURS NEEDED FOR SHORTNESS OF BREATH OR WHEEZING 0 Active atorvastatin (LIPITOR) 20 mg tablet TAKE 1 TABLET BY MOUTH ONCE DAILY IN THE EVENING 0 Active amphetamine-de xtroamphetamin e (ADDERALL XR) 10 mg Extended Release 24 hour capsule TAKE 1 CAPSULE BY MOUTH ONCE DAILY IN THE MORNING 0 Active venlafaxine (EFFEXOR XR) 150 mg Extended Release 24 hour capsule TAKE 1 CAPSULE BY MOUTH ONCE DAILY 0 Active famotidine (PEPCID) 40 mg tablet famotidine 40 mg tablet TAKE 1 TABLET BY MOUTH TWICE DAILY 1 Active fluticasone propionate (FLONASE) 50 mcg/spray [place], Suspension nasal inhaler Administer 2 Sprays in each nostril daily. 2 Active losartan (COZAAR) 50 mg tablet Take 50 mg by mouth daily. 1 Active metroNIDAZOLE (FLAGYL) 500 mg tablet metronidazole 500 mg tablet TAKE 1 TABLET BY MOUTH TWICE DAILY FOR 7 DAYS Active mometasone-for moterol (DULERA) 100-5 mcg/actuation inhaler Dulera 100 mcg-5 mcg/actuation HFA aerosol inhaler INHALE 2 PUFFS BY MOUTH TWICE DAILY Active Active Problems Problem Noted Date Diagnosed Date Reactive thrombocytosis 12/19/2019 Encounters Date Type Department Care Team Description 01/02/2025 External Device Data [facility] ABSTRACTION Provider, Abstract 12/19/2024 External Device Data [facility] ABSTRACTION Provider, Abstract 12/12/2024 External Device Data [facility] ABSTRACTION Provider, Abstract 12/06/2024 External Device Data [facility] ABSTRACTION Provider, Abstract 12/05/2024 External Device Data [facility] ABSTRACTION Provider, Abstract from Last 3 Months Family History Relation Name Status Comments Brother 1 Alive Brother 2 Alive Daughter 1 Alive Daughter 2 Alive Father Alive Mother Alive Social History Tobacco Use Types Packs/Day Years Used Date Smoking Tobacco: Never Smokeless Tobacco: Never Tobacco Cessation:Counseling Given: Not Answered Alcohol Use Standard Drinks/Week Comments Yes 0 (1 standard drink = 0.6 oz pur e alcohol) Comments No Sex and Gender Information Value Date Recorded Sex Assigned at Not on file Legal Sex Female 8:17 AM CDT Gender Identity Not on file Sexual Orientation Not on file Last Filed Vital Signs Vital Sign Reading Time Taken Comments Blood Pressure 121/76 02/02/2024 10:05 AM CDT Pulse 93 02/02/2024 10:05 AM CDT Temperature 36.7 C (98 F) 02/02/2024 10:05 AM CDT Respiratory Rate 20 02/02/2024 10:05 AM CDT Oxygen Saturation 97% 02/02/2024 10:05 AM CDT Inhaled Oxygen Concentration - - Weight 139.7 kg (308 lb) 02/02/2024 10:05 AM CDT Height 165.1 cm (5' 5) 01/05/2022 10:04 AM CDT Body Mass Index 51.25 01/05/2022 10:04 AM CDT Plan of Treatment Upcoming Encounters Date Type Department Care Team (Late st Contact Info) Description 02/01/2025 10:00 AM CDT Office Visit [facility] [place] [facility] - [place] [address] [place] [address] Trino Stubbs MD [address] [place] [address] Health Maintenance Due Date Last Done Comments HPV VACCINES (1 - 3-dose series) 1995 DIABETES ANNUAL FOOT EXAM 1998 DIABETES ANNUAL RETINAL EXAM 1998 DIABETES MICROALBUMIN ANNUAL SCREEN 1998 LDL CHOLESTEROL ANNUAL 1998 HEPATITIS B VACCINES (1 of 3 - 19+ 3-dose series) 1999 HPV/Cotest (21-29) 2001 HPV/Cotest (30-65) 2010 BREAST CANCER SCREENING 09/14/2024 09/14/2023, 09/14 INFLUENZA VACCINE (#1) 2025 , 04/29/2023, 04/29/2022, Additional history exists DIABETES HBA1C Q 6 MONTHS 03/09/20252024, 08/17/2024, 05/05/2024, Additional history exists Preventative Visit-Managed Medicaid 11/07/2025 11/06/2024, 04/07/2024, 04/05/2023, Additional history exists CERVICAL CANCER SCREENING 12/20/2026 PAP SMEAR 12/20/2026 12/21/2023, 11/17, 11/10/2021, Additional history exists DTAP/TDAP/TD VACCINES (2 - T d or Tdap) 01/17/2034 01/18/2024 Insurance [facility] MEDICA[facility] Member Subscriber Plan / Payer (Ef fective 2021-Present) Name:Marlen Lucero Relation to Subscriber:Self Name:Marlen Lucero Payer ID:[id number] (NAIC) Group ID:Not on file Type:PPO Address: [address] [address] Care Teams Civil Engineering Teacher Relationship Specialty Start Date End Date Ronel Fernandes FNP [facility] [address] [address] PCP - General Nurse Practitioner Family 12/19/19
--- OUTSIDE RECORDS SUMMARY | 2025-02-01 09:41 | XMS_ITS | Referral Summary ---
Author Organization [facility] Address [address] [place] [address] Care Team Providers Care Travel Writer Name Role Phone Franki Nunn DO Primary Care Provider + Encounters Date Type Department Care Team Description 11/22/2024 Results Follow-Up [facility] [place] [address] [address] Shreya Dozier, NESHA XR Toe 2nd Digit Right Minimum 2 Views 11/22/2024 12:25 PM CDT Ancillary Procedure [facility] [place] [address] [address] Contusion of toe of left foot, initial encounter 11/21/2024 3:30 PM CDT Office Visit [facility] [place] [address] [address] Shreya Dozier, NESHA Toe injury, right, initial encounter (Primary Dx); Contusion of toe of left foot, initial encounter 11/03/2024 10:45 AM CDT Office Visit [facility] Hand Surgery [address] [place] [address] Yuli Escalante MD De Quervain's tenosynovitis (Primary Dx) from Last 3 Months Allergies Active Allergy Reactions Criticality Noted Date [...] lumbar 05/21/2011 Ulcerative colitis 05/20/2011 Obesity 02/12/2010 Social History Tobacco Use Types Packs/Day Years [...] on file Legal Sex Female 6:44 PM NURSERY HAND Gender Identity Not on file Sexual Orientation Not on file Last Filed Vital Signs Vital Sign Reading Time Taken Comments Blood Pressure 120/59 06/06/2024 7:40 AM NURSERY HAND Pulse 59 11/21/2024 3:31 PM CDT Temperature 36.5 C (97.7 F) 11/21/2024 3:31 PM CDT Respiratory Rate 18 11/21/2024 3:31 PM CDT Oxygen Saturation 99% 11/21/2024 3:31 PM CDT Inhaled Oxygen Concentration - - Weight 144.2 kg (318 lb) 11/21/2024 3:31 PM CDT Height 160 cm (5' 3) 11/21/2024 3:31 PM CDT Body Mass Index 56.33 11/21/2024 3:31 PM CDT Plan of Treatment Not on file Procedures Procedure Name Priority Date/Time Associated Diagnosis Comments XR TOE 2ND DIGIT RIGHT Schedule WOLFGANG, Read WOLFGANG (Appt Today, Awaiting Results) 11/21/2024 3:46 PM CDT Contusion of toe of left foot, initial encounter MO INJECTION 1 TENDON SHEATH/LIGAMENT APONEUROSIS Routine 11/03/2024 [...] Gloria Ugarte D.O. PS T: Report ID: [id number] Reading Location: [id number] Procedure Note Gloria Ugarte DO - 11/22/2024 [...] Gloria Ugarte D.O. PS T: Report ID: [id number] Reading Location: [id number] Shreya Dozier NP IMG XR PROCEDURES Final Resu lt * MO INJECTION 1 TENDON SHEATH/LIGAMENT APONEUROSIS (11/03/2024 10:45 AM CDT) Narrative Yuli Escalante MD - 11/03/2024 10:45 AM CDT Yuli Escalante MD 11/03/2024 10:57 AM De Iram's injection: L extensor compartment 1 Performed by: Yuli Escalante MD Authorized by: Yuli Escalante MD De Quertana'arnel Injection: Consent Given by: Patient Site marked: [...] Final Result from Last 3 Months Insurance [id number] [place] [address] [facility] Care Teams Travel Writer Relationship Specialty Start Date End Date Franki Nunn DO [address] [address] PCP - General Family Practice 06/06/24
--- OUTSIDE RECORDS SUMMARY | 2025-02-01 09:41 | XMS_ITS | Clinical Summary ---
Author Organization [facility] Address [address] [place] [address] Care Team Providers Care Fishing Vessel Mate Name Role Phone Franki Nunn DO Primary Care Provider [phone] Genesis Francisco SHAREPOINT ARCHITECT-MARKSMANSHIP INSTRUCTOR Unavailable [phone] Source Comments [facility],non-owned Affiliates and Associated Physician Practices is amultiple site organization consisting of ambulatory clinics and hospital sitesin [place], [place] and [place]. This disclosure is being madepursuant to the Care Everywhere program and may not contain all information available regarding this patient. Last updated 18.[facility] Allergies Active Allergy Reactions Criticality Noted Date Comments Sulfa Drugs Urticaria Medium 03/12/2023 Sulfamethoxazole W-Trimethoprim Urticaria,Rash High 12/19/2019 Medications * Be aware that medications may not be up to date on this document. Alwaysverify current medications with the patient. norethindrone (AYGESTIN) 5 MG tablet 9 Active venlafaxine XR 24hr (EFFEXOR XR) 150 MG capsule TAKE 1 CAPSULE BY MOUTH ONCE DAILY WITH MEALS 9 Active aspirin EC (Ecotrin) 81 MG tablet Take 1 (one) tablet by mouth once daily Active hydrOXYzine HCl (Atarax) 10 MG tablet Take 1 (one) tablet by mouth 3 times daily as needed Active cetirizine (ZyrTEC) 10 MG tabletIndication s:Mild intermittent asthma with acute exacerbation (HCC) Take 1 (one) tablet by mouth once daily 90 tablet 4 4 Active meloxicam (Mobic) 15 MG tabletIndication s:Acute pain of left knee Take 1 tablet by mouth once daily 90 tablet 5 Active albuterol HFA (Proventil; Ventolin; Proair) 108 (90 Base) MCG/ACT inhalerIndicatio ns:Mild intermittent asthma with acute exacerbation (HCC) INHALE 1 PUFF BY MOUTH EVERY 4 HOURS NEEDED FOR WHEEZING 18 g 1 5 Active losartan (Cozaar) 50 MG tabletIndication s:Benign essential HTN Take 1 (one) tablet by mouth once daily 90 tablet 5 Active metFORMIN (Glucophage) 1000 MG tabletIndication s:PCOS (polycystic ovarian syndrome) TAKE 1/2 (ONE-HALF) TABLET BY MOUTH TWICE DAILY WITH MORNING MEAL AND WITH EVENING MEAL 90 tablet 5 Active omeprazole (PriLOSEC) 40 MG capsuleIndicatio ns:Gastroesophag eal reflux disease without esophagitis Take 1 (one) capsule by mouth once daily 90 capsule 1 5 Active pantoprazole EC (Protonix) 40 MG tabletIndication s:Gastroesophage al reflux disease, unspecified whether esophagitis present Take 1 (one) tablet by mouth once daily 90 tablet 4 4 01/25/20 25 Discontinu ed(Tx Complete) ondansetron, disintegrating, (Zofran ODT) 4 MG tablet Take 1 (one) tablet by mouth every 6 hours as needed 4 01/25/20 25 Discontinu ed(Tx Complete) nitrofurantoin monohyd macro crystals (Macrobid) 100 MG capsuleIndicatio ns:Acute cystitis without hematuria Take 1 (one) capsule by mouth 2 times daily with morning and evening meal for 5 days 10 capsule 5 01/30/20 25 Active Problems Problem Noted Date Diagnosed Date Noncompliance with CPAP treatment 12/13/2024 Positive CORNELIO (antinuclear an tibody) titer of >1:1280 centromere pattern 11/15/2024 Assessment & Plan (11/15/2024 9:43 AM CDT): Despite strongly positive CORNELIO with centromere pattern no clinical confirmation of a diagnosis of limited scleroderma although with symptoms described and characteristic with cold induced Raynaud's phenomena (both digital pallor and acrocyanosis appearance) and nail fold telangiectasia/nail fold hemorrhage findings noted would suggest possible early developing manifestations of an underlying systemic connective tissue disease and I would suggest ongoing routine in office monitoring every 6 months at this point. Raynaud's phenomenon without gangrene 11/15/2024 Assessment & Plan (11/15/2024 9:48 AM CDT): Describes symptoms suggestive of cold induced Raynaud's phenomena characterized by digital ischemic pallor and acrocyanosis but without ischemic ulcerations. Additional previous findings of a strongly positive antinuclear antibody with a centromere pattern and abnormal nail fold capillary telangiectasia and hemorrhages would warrant monitoring for future development of limited scleroderma. Additionally would note that use of SNRI medications including venlafaxine potentially can exacerbate Raynaud's phenomena and would encourage further discussion with her local primary care physician regarding the continued use of this medication. Musculoskeletal pain 11/15/2024 Assessment & Plan (11/15/2024 9:47 AM CDT): Describes intermittent somewhat migratory musculoskeletal pain symptoms but nothing that would strongly suggest an inflammatory polyarthritis. She reports being told that she had c olitis possibly at the time of her July 2024 colonoscopy although reports only indicate removal of a benign polyp in no mention of inflammatory bowel disease or pathology to identify active colitis including ulcerative colitis, Crohn's disease or microscopic colitis (recent primary care note mentions ulcerative colitis related arthropathies). Examination did identify a few fibromyalgia tender points but otherwise was unremarkable for any currently active systemic inflammatory arthritis condition. Thyroid nodule 03/09/2024 Hypogonadotropic hypogonadism 03/03/2024 Moderate obstructive sleep apnea 04/19/2023 04/29/2023 Hypersomnia 01/13/2023 Benign essential HTN 05/21/2021 Pelvic and perineal pain 10/13/2019 023 Overview (03/12/2023): Pelvic and perineal pain;Practice ID: [id number] Acute vaginitis 08/13/2019 03/12/2023 Overview (03/12/2023): Vulvovaginitis;Recorded Elsewhere: No Location: [facility] Source: EHR Chronic: N Practice ID: [id number] Billable Time: 11:00:00 AM Osteoarthrosis 06/30/2019 Urinary tract infectious disease 12/01/2018 03/12/2023 Overview (03/12/2023): Urinary tract infection, site not specified;Practice ID: 0001 Asthma 04/20/2018 Major depression, recurrent, chronic 08/19/2016 Hypercholesterolemia 12/25/2015 PCOS (polycystic ovarian syndrome) 09/19/2014 Degenerative disc disease, lumbar 05/21/2011 IBS (irritable bowel syndrome) 05/21/2011 Morbid obesity with body mas s index (BMI) of 50.0 to 59.9 in adult 02/12/2010 Resolved Problems Problem Noted Date Diagnosed Date Resolved Date Perimenopause 05/07/2023 08/17/2023 10/22/2023 Inflammatory polyarthropathy 03/12/2023 11/15/2024 Suspected sleep apnea 01/13/20232024 Loud snoring 01/13/2023 01/10/2025 Carpal tunnel syndrome 06/30/201905/21 Knee joint effusion 06/30/2019 05/21/20 21 Knee pain 06/30/2019 05/21/2021 Wrist joint pain 06/30/2019 05/21/2021 Leukocytosis 05/16/2019 03/12/2023 11/15/2024 Overview (03/12/2023): Elevated white blood cell count, unspecified;Recorded Elsewhere: No Location: [facility] Source: EHR Chronic: N Practice ID: [id number] Billable Time: 09:15:00 AM Cervical high risk human pap illomavirus (HPV) DNA test positive 12/01/2018 03/12/2023 01/24/2025 Overview (03/12/2023): Cervical high risk HPV DNA test positive;Practice ID: 0001 test negative 12/01/2018 03/12/2023 07/0 03/2025 Overview (03/12/2023): Encounter for test, result negative;Practice ID: 0001 Ulcerative colitis 05/20/2011 Encounters Date Type Department Care Team Description 01/26/2025 Results Follow-Up [address] [phone] Eliana Browning APRN-CNP 01/24/2025 3:30 PM CDT Office Visit [facility] [address] [phone] Eliana Browning APRN-CNP Gastroesophageal reflux disease without esophagitis (Primary Dx); Acute cystitis without hematuria; Dysuria; Subungual hematoma of second toe of right foot, initial encounter 01/10/2025 12:30 PM CDT Office Visit [facility] Pulmonology [address] [place] [address] [address] [place] [address] Genesis Francisco APRN-CNP Moderate obstructive sleep apnea (Primary Dx) 12/13/2024 2:00 PM CDT Office Visit [facility] Pulmonology [address] [place] [address] [address] [place] [address] Genesis Francisco APRN-CNP Moderate obstructive sleep apnea (Primary Dx); Noncompliance with CPAP treatment 12/13/2024 Travel 12/09/2024 Refill [facility] [address] [phone] Eliana Browning APRN-CNP Refill Request 11/17/2024 Telephone [facility] [address] [phone] Franki Nunn DO Medication Problem 11/15/2024 9:20 AM CDT Office Visit [facility] - Rheumatology [address] [facility], [address] [place] [address] Luis Miguel Lea DO Positive CORNELIO (antinuclear antibody) titer of >1:1280 centromere pattern (Primary Dx); Raynaud's phenomenon without gangrene; Musculoskeletal pain 11/09/2024 Results Follow-Up [facility] [address], [address] [phone] Janice Voss PA-C 11/09/[address], [address] [phone] Franki Nunn DO Refill Request 11/08/2024 2:00 PM CDT Ancillary Procedure [facility] [address], [address] [phone] Ángel Manning MD Shortness of breath 11/08/2024 1:00 PM CDT Ancillary Procedure [facility] [address], [address] [phone] Ángel Manning MD Chest pain, unspecified type 11/06/2024 10:45 AM CDT Office Visit [address] [phone] Franki Nunn DO Well adult exam (Primary Dx); Benign essential HTN; Mild intermittent asthma without complication (HCC); Moderate obstructive sleep apnea; Morbid obesity with body mass index (BMI) of 50.0 to 59.9 in adult ([facility]/HCC); PCOS (polycystic ovarian syndrome); Inflammatory polyarthropathy (HCC); Other ulcerative colitis without complication (HCC) from Last 3 Months Immunizations Immunization Administration Dates Next Due INFLUENZA VACCINE 05/04/2020,,06/01/2019,2018,09/05/2014 INFLUENZA VACCINE, QUADR. (A FLURIA, FLUZONE QUADRIVALENT; 6MO+) (IIV4) 05/04/2020,06/01/2019,09/05/2014 INFLUENZA VACCINE, QUADR. (F LUZONE; FLULAVAL; FLUARIX; AFLURIA QUADRIVALENT; 6MO+), 0.5 ML (IIV4) 04/29/2023,04/29/2022,05/21/2021,2019,09/27/2018 INFLUENZA VACCINE, TRIV. (FL UZONE; FLULAVAL; FLUARIX; AFLURIA TRIVALENT; 6MO+), 0.5 ML (IIV3) 06/02/2024 PNEUMOCOCCAL PCV20 CONJ VAC IM 04/29/2023 TDAP (7yrs+) 01/18/2024 Family History Medical History Relation Name Comments Brain Tumor Brother 1 details unknown Depression Brother 1 Diabetes - Type 2 Brother 1 Sleep Disorder - Sleep apnea Brother 1 CAD (Coronary Artery Disease) Father Hypertension Father Cancer - Breast Mother Cancer - Thyroid Mother Sjogren's Syndrome Mother Relation Name Status Comments Brother 1 Alive Brother 2 Alive Father Alive Mother Alive Social History Tobacco Use Types Packs/Day Years Used Date Smoking Tobacco: Never Passive Smoke Exposure: Never Smokeless Tobacco: Never Tobacco Cessation:Counseling Given: Not Answered Alcohol Use Standard Drinks/Week Comments Never 0 (1 standard drink = 0.6 oz pur e alcohol) AUDIT-C Answer Date Recorded Frequency of Alcohol Consumption Never 06/30/2019 Average Number of Drinks Not on file 019 Frequency of Binge Drinking Not on file 06/18 PHQ-2 Answer Date Recorded Patient Health Questionnaire-2 Score 2 01/23/2025 Comments No Sex and Gender Information Value Date Recorded Sex Assigned at Female 05/19/2021 11:48 AM CDT Legal Sex Female 3:53 PM ROBOT PROGRAMMER Gender Identity Female 05/19/2021 11:48 AM CDT Sexual Orientation Straight 05/19/2021 11 :48 AM CDT Last Filed Vital Signs Vital Sign Reading Time Taken Comments Blood Pressure 120/64 01/24/2025 3:06 PM CDT Pulse 84 01/24/2025 3:06 PM CDT Temperature 36.8 C (98.2 F) 11/15/2024 9:21 AM CDT Respiratory Rate 22 01/24/2025 3:06 PM CDT Oxygen Saturation 98% 01/24/2025 3:06 PM CDT Inhaled Oxygen Concentration - - Weight 144.2 kg (318 lb) 01/24/2025 3:06 PM CDT Height 165.1 cm (5' 5) 01/24/2025 3:06 PM CDT Body Mass Index 52.92 01/24/2025 3:06 PM CDT Plan of Treatment Upcoming Encounters Date Type Department Care Team (Late st Contact Info) Description 04/27/2025 1:30 PM CDT Office Visit [facility] - Pulmonology [address] [place] [address] Genesis Francisco, SHAREPOINT ARCHITECT-MARKSMANSHIP INSTRUCTOR [address] [place] [address] 05/09/2025 10:15 AM CDT Office Visit [facility] - Family Medicine [address] [facility] [address] [place] [address] Franki Nunn DO [address] [facility] [address] [place] [address] 05/17/2025 9:20 AM CDT Office Visit [facility] - Rheumatology [address] [facility], [address] [place] [address] Luis Miguel Lea DO [address] [facility] [address] [place] [address] 08/16/2025 9:00 AM ROBOT PROGRAMMER Office Visit [facility] - Endocrinology [address] [place] [address], [place] [address] Francia Loja MD [address] [place] [address] [place] [phone] Health Maintenance Due Date Last Done Comments COLOGUARD (AGES 45-75) - COLON CA SCREENING 1980 CT COLONOGRAPHY - COLON CA SCREENING 1980 FIT - COLON CA SCREENING 1980 FLEX SIG - COLON CA SCREENING 1980 HIV SCREENING 1995 HEPATITIS C SCREENING 04/29/1998 HEPATITIS B VACCINE (1 of 3 - 19+ 3-dose series) 1999 HPV VACCINE (1 - 3-dose SCDM series) 2007 COVID-19 VACCINE ( season) 2024 INFLUENZA VACCINE (#1) 2025 , 04/29/2023, 04/29/2022, Additional history exists MAMMOGRAM 09/14/2025 09/14/2023, 09/14/2023 SCREENING FOR DIABETES 09/09/2027 , 08/17/2024, 08/17/2024, Additional history exists PAP SMEAR 01/23/2028 01/22/2025, 07/0 01/2025, 12/21/2023, Additional history exists LIPID TESTING 08/17/2029 08/17/2024, 06/0 10/2023, 04/10/2023, Additional history exists ZOSTER VACCINE (1 of 2) 2030 DTAP/TDAP/TD VACCINES (2 - Td or Tdap) 01/17/2034 01/18/2024 COLON MONITORING 08/11/2034 08/11/2024, , 08/11/2024, Additional history exists COLONOSCOPY - COLON CA SCREENING 08/11/2034 08/11/2024, 08/11/2024, 08/11/2024, Additional history exists Colorectal Cancer Screening 08/11/2034 PNEUMOCOCCAL VACCINE Completed 04/29/2023 DEPRESSION SCREENING Completed 09/20/2024, 10/22/2023, 10/22/2023, Additional history exists HIB VACCINE Aged Out No longer eligi ble based on patient's age to complete this topic MENINGOCOCCAL (Group B) VACCINE SHARED DECISION-MAKING Aged Out No longer eligible based on patient's age to complete this topic MENINGOCOCCAL GROUPS A/C/Y/W VACCINE Aged Out No longer eligible based on patient's age to complete this topic Procedures Procedure Name Priority Date/Time Associated Diagnosis Comments URINALYSIS AUTO - POINT OF CARE Routine 01/24/2025 3:45 PM CDT Dysuria CULTURE URINE Routine 01/24/2025 3:35 PM CDT Dysuria ECHO COMPLETE Routine 11/08/2024 2:39 PM CDT Shortness of breath STRESS TEST Routine 11/08/2024 1:19 PM CDT Chest pain, unspecified type HEMOGLOBIN A1C (EXTERNAL RESULT ENTRY) Routine 09/09/2024 LIPID PROFILE Routine 08/17/2024 9:15 AM ROBOT PROGRAMMER Hypercholesterolemia ENDOSCOPY, COLON, DIAGNOSTIC Routine 08/11/2024 10:33 AM ROBOT PROGRAMMER MAMMO BILAT DIAGNOSTIC W EDMOND Routine 09/14/2023 Mass of left axilla Breast tenderness from Last 3 Months or Most Recently Relevant to Health Maintenance Results * URINALYSIS AUTO - POINT OF CARE (01/24/2025 3:45 PM CDT) Clarity UA POCT cloudy [facility] [place] Color UA POCT yellow [facility] Leukocyte UA neg Negative [facility] [place] Nitrite UA POCT neg Negative [facility] Urobilinogen UA 0.2 0.1 - 1.0 [facility] Protein UA POCT neg Negative [facility] [place] pH UA 6.0 5.0 - 8.0 pH units [facility] [place] Blood UA neg Negative [facility] [place] Specific [place] UA POCT 1.025 1.002 - 1.030 [facility] Ketone UA neg Negative [facility] Bilirubin UA POCT 1+ Negative [facility] [place] Glucose UA neg Negative [facility] [place] Urine URINE / Unknown 01/24/2025 3 :45 PM CDT Eliana Browning SHAREPOINT ARCHITECT-MARKSMANSHIP INSTRUCTOR LAB - POIN T OF CARE ORDERABLES Final Result [facility] [place] [address] [place] [address], [facility] [phone] * CULTURE URINE (01/24/2025 3:35 PM CDT) Urine Culture Routine Final report [facility] INSURANCE BILL Comment: Performed at: [address] [id number] Signal Wirer: Cristhian Choi PhD, Phone: [phone] Result 1 Comment [facility] INSURANCE BILL Comment: Mixed urogenital akash 25,000-50,000 colony forming units per mL Urine URINE SPECIMEN OBTAINED BY CLEAN CATCH PROCEDURE / Unknown 01/24/2025 3:35 PM CDT 01/24/2025 Comment:Urine - clean catch R Narrative [facility] INSURANCE BILL - 01/26/2025 8:11 AM CDT Performed at: [address] [id number] Signal Wirer: Cristhian Choi PhD, Phone: [phone] Eliana Browning SHAREPOINT ARCHITECT-MARKSMANSHIP INSTRUCTOR LAB - MICR OBIOLOGY ORDERABLES Final Result Performing Organization Address City/State/[facility] Co de Phone Number [facility] INSURANCE BILL [address] [place] [address] * ECHO COMPLETE (11/08/2024 2:39 PM CDT) Pathologist [facility] AV area index 1.25 cm /m [facility] LA vol index 0.017 l/m [facility] Dimensionless Index 0.947 unitless [facility] Myocardial strain charge 2 unitless [facility] IVSd 2D 0.974 cm [facility] LVIDd 3.842 cm [facility] PACS LVIDs 2.687 cm [facility]ACS LVOT diam 2.093 cm [facility] PACS LVPWd 0.965 cm [facility] PACS LV biplane EF 63.216 % [facility] PACS LV A2C EF 47.584 % [facility] I PACS LV A4C EF 76.237 % [facility] I PACS LV EDV A2C 86.284 ml [facility] CV FU JI PACS LV EDV A4C 103.077 ml [facility] FU JI PACS LV ESV A2C 45.227 ml [facility] CV FU JI PACS LV ESV A4C 24.494 ml [facility] CV FU JI PACS LVOT pk grad 3.913 mmHg [facility] PACS LVOT pk burke 98.909 cm/s SSM CV F UJI PACS LVOT VTI 22.781 cm [facility] CV FUJ I PACS LA size 3.727 cm [facility] FUJ I PACS LA vol BP 43.718 ml [facility] CV FUJ I PACS AV area pk burke 3.007 cm [facility] CV FUJI PACS AV area cont VTI 3.258 cm [facility] CV FUJI PACS AV pk grad 5.122 mmHg [facility] CV FU JI PACS AV mn grad 3.621 mmHg [facility] CV FU JI PACS AV pk burke 113.16 cm/s SSM CV FUJ I PACS AV VTI 24.052 cm SSM CV FUJ I PACS MV A pk burke 79.141 cm/s SSM CV F UJI PACS MV E pk burke 70.508 cm/s SSM CV F UJI PACS MV E' lateral burke 8.409 cm/s SS M CV FUJI PACS MV mn grad 1.533 mmHg SSM CV FU JI PACS MV VTI 15.385 cm SSM CV FUJ I PACS PV pk burke 85.539 cm/s SSM CV FUJ I PACS TAPSE 2.533 cm SSM CV FUJ I PACS TR pk burke 228.634 cm/s SSM CV FUJ I PACS Ascending aorta 2.796 cm SSM CV FUJI PACS Anatomical Region Laterality Modality Ultrasound 11/08/2024 2:1 6 PM CDT Narrative 11/08/2024 8:28 PM CDT Summary * The left ventricle is normal in size, with normal systolic function and an estimated ejection fraction of 63 % by biplane method of disks. Left ventricular wall motion is normal. * There is mildly increased left ventricular wall thickness. * The left ventricular mass is normal with concentric remodeling. * The left ventricular diastolic function is normal. * Right ventricle is normal in size with normal systolic function. * The pulmonary artery systolic pressure is normal, 24 mmHg. * No significant valvular abnormalities. Patient Info Name: Marlen Lucero Age: 44 years : 1980 Gender: Female Ht: 63 in Wt: 313 lb BSA: 2.61 m2 HR: 86 bpm BP: 118 / 70 mmHg Exam Date: 11/08/2024 2:16 PM Patient Status: O Study Site: [facility] Primary Location: [facility] Info Technical Quality: Adequate Exam Type: ECHO COMPLETE Indications R06.02 - Shortness of breath Procedure(s) * A complete 2D, color Doppler, and spectral Doppler transthoracic echocardiogram was performed. Staff Referring Physician: Ángel Manning Ordering Provider: Ángel Manning Websphere Portal Developer: Jamia Orourke [facility] Left Ventricle The left ventricle is normal in size. Left ventricular systolic function is normal with an estimated ejection fraction of 63 % by biplane method of disks. There is mildly increased left ventricular wall thickness. The left ventricular mass is normal with concentric remodeling. Left ventricular segmental wall motion is normal. The left ventricular diastolic function is normal. Right Ventricle The right ventricle is normal in size. Right ventricular systolic function is normal. Left Atrium The left atrium is normal in size with a left atrial volume index of 17 ml/m2 by BP MOD. Right Atrium The right atrium is normal in size. Atrial Septum Intact interatrial septum visualized by 2D and color Doppler imaging. Aortic Valve The aortic valve is trileaflet. There is no aortic valve stenosis. There is no aortic valve regurgitation. Pulmonic Valve The pulmonic valve is normal. There is no pulmonic valve stenosis. There is trace pulmonic regurgitation. Mitral Valve The mitral valve is normal. There is no mitral valve stenosis. There is trace mitral valve regurgitation. Tricuspid Valve The tricuspid valve is normal. There is trace tricuspid valve regurgitation. The pulmonary artery systolic pressure is normal, 24 mmHg. Inferior Vena Cava The inferior vena cava is not well visualized and therefore the right atrial pressure is assumed to be 8 mmHg. Pericardium/Pleural There is no pericardial effusion. Aorta The aortic root at the sinus of Valsalva is not well visualized. The ascending aorta is normal in size. Measurements Left Ventricular Outflow Tract Name Value Normal LVOT 2D LVOT Diameter 2.1 cm LVOT Area 3.4 cm2 LVOT Doppler LVOT Peak Velocity 1.0 m/s LVOT Peak Gradient 4 mmHg LVOT Mean Velocity 62.35 cm/s LVOT Mean Gradient 2 mmHg LVOT VTI 22.8 cm LVOT VTI/AV VTI Ratio 0.9 LVOT Stroke Volume 78 ml LVOT Stroke Volume Index 30 ml/m2 35-58 LVOT CO 6.7 l/min LVOT CI 2.6 l/min/m2 Pulmonic Valve Name Value Normal PV Doppler PV Peak Velocity 0.9 m/s PV Peak Gradient 3 mmHg PV Accel Time 83.73 ms Mitral Valve Name Value Normal MV Doppler MV Peak Gradient 4 mmHg MV Mean Gradient 2 mmHg MV DI (VTI) 0.68 MV Area (Cont Eq VTI) 5.09 cm2 MV Diastolic Function MV E Peak Velocity 0.7 m/sec MV A Peak Velocity 0.8 m/sec MV E/A 0.9 MV Decel Time (PW) 154 ms MV Annular TDI MV Septal e' Velocity 10 cm/s >=8 MV E/e' (Septal) 7 <=8 MV Lateral e' Velocity 8 cm/s >=10 MV E/e' (Lateral) 8 <=8 MV e' Average 9 cm/s MV E/e' (Average) 8 Tricuspid Valve Name Value Normal TV Regurgitation Doppler TR Peak Velocity 2.3 m/s TR Peak Gradient 21 mmHg Estimated PAP/RSVP RA Pressure 3 mmHg <=5 PA Systolic Pressure 24 mmHg <35 RV Systolic Pressure 24 mmHg <36 TV Annular TDI TV Lateral Hollie s' Velocity 13 cm/s 10-19 Aorta Name Value Normal Ascending Aorta Ao Root Diameter (2D) 2.5 cm Ao Root Diam Index (2D) 1.0 cm/m2 Asc Ao Diameter 2.8 cm 1.9-3.5 Asc Ao Diameter Index 1.1 cm/m2 1.0-2.2 Aortic Valve Name Value Normal AV Doppler AV Peak Velocity 1.13 m/s AV Peak Gradient 5 mmHg AV Mean Gradient 4 mmHg AV VTI 24 cm AV Area (Cont Eq VTI) 3.26 cm2 >=2.00 AV Area (Cont Eq Burke) 3.01 cm2 AV DI (VTI) 0.95 AV DI (Burke) 0.87 AV Regurgitation 2D LVOT Area 3.44 cm2 Ventricles Name Value Normal LV Dimensions 2D/MM IVS Diastolic Thickness (2D) 1.0 cm 0.6-0.9 LVID Diastole (2D) 3.8 cm 3.8-5.2 LVPW Diastolic Thickness (2D) 1.0 cm 0.6-0.9 LVID Systole (2D) 2.7 cm 2.2-3.5 LV Mass (2D Cubed) 114 g 67-162 LV Mass Index (2D Cubed) 44 g/m2 43-95 Relative Wall Thickness (2D) 0.50 <=0.42 LV Fractional Shortening/Ejection Fraction 2D/MM LV Fractional Shortening (2D) 30 % 27-45 LV EF (2D Teicholz) 58 % 54-74 LV Diastolic Volume (4C MOD) 103 ml LV EF (4C MOD) 76 % LV Diastolic Volume (2C MOD) 86 ml LV EF (2C MOD) 48 % LV Diastolic Volume (BP MOD) 96 ml 46-106 LV Diastolic Volume Index (BP MOD) 37 ml/m2 29-61 LV Systolic Volume (BP MOD) 35 ml 14-42 LV Systolic Volume Index (BP MOD) 14 ml/m2 8-24 LV EF (BP MOD) 63 % 54-74 LV Diastolic Length (4C) 7.8 cm LV Systolic Length (4C) 6.1 cm LV Stroke Volume (4C MOD) 79 ml RV Dimensions 2D/MM TAPSE 2.5 cm >=1.7 Atria Name Value Normal LA Dimensions LA Dimension (2D) 3.7 cm 2.7-3.8 LA Dimen Index (2D) 1.4 cm/m2 LA Volume (BP MOD) 44 ml LA Volume Index (BP MOD) 17 ml/m2 16-34 Report Signatures Finalized by Ángel Manning on 11/08/2024 08:28 PM Procedure Note Ángel Manning MD - 11/08/2024 Summary * The left ventricle is normal in size, with normal systolic functionand an estimated ejection fraction of 63 % by biplane method of disks. Left ventricular wall motion is normal. * There is mildly increased left ventricular wall thickness. * The left ventricular mass is normal with concentric remodeling. * The left ventricular diastolic function is normal. * Right ventricle is normal in size with normal systolic function. * The pulmonary artery systolic pressure is normal, 24 mmHg. * No significant valvular abnormalities. Patient Info Name: Marlen Lucero Age: 44 years : 1980 Gender: Female Ht: 63 in Wt: 313 lb BSA: 2.61 m2 HR: 86 bpm BP: 118 / 70 mmHg Exam Date: 11/08/2024 2:16 PM Patient Status: O Study Site: [facility] Primary Location: [facility] EStud Info Technical Quality: Adequate Exam Type: ECHO COMPLETE Indications R06.02 - Shortness of breath Procedure(s) * A complete 2D, color Doppler, and spectral Doppler transthoracic echocardiogram was performed. Staff Referring Physician: Ángel Manning Ordering Provider: Ángel Manning Websphere Portal Developer: Jamia Orourke [facility] Left Ventricle The left ventricle is normal in size. Left ventricular systolic functionis normal with an estimated ejection fraction of 63 % by biplane method ofdisks. There is mildly increased left ventricular wall thickness. The left ventricular mass is normal with concentric remodeling. Left ventricular segmental wall motion is normal. The left ventricular diastolic functionis normal. Right Ventricle The right ventricle is normal in size. Right ventricular systolicfunction is normal. Left Atrium The left atrium is normal in size with a left atrial volume index of17 ml/m2 by BP MOD. Right Atrium The right atrium is normal in size. Atrial Septum Intact interatrial septum visualized by 2D and color Doppler imaging. Aortic Valve The aortic valve is trileaflet. There is no aortic valve stenosis. Thereis no aortic valve regurgitation. Pulmonic Valve The pulmonic valve is normal. There is no pulmonic valve stenosis. Thereis trace pulmonic regurgitation. Mitral Valve The mitral valve is normal. There is no mitral valve stenosis. Thereis trace mitral valve regurgitation. Tricuspid Valve The tricuspid valve is normal. There is trace tricuspid valveregurgitation. The pulmonary artery systolic pressure is normal, 24 mmHg. Inferior Vena Cava The inferior vena cava is not well visualized and therefore the rightatrial pressure is assumed to be 8 mmHg. Pericardium/Pleural There is no pericardial effusion. Aorta The aortic root at the sinus of Valsalva is not well visualized. The ascending aorta is normal in size. Measurements Left Ventricular Outflow Tract Name Value Normal LVOT 2D LVOT Diameter 2.1 cm LVOT Area 3.4 cm2 LVOT Doppler LVOT Peak Velocity 1.0 m/s LVOT Peak Gradient 4 mmHg LVOT Mean Velocity 62.35 cm/s LVOT Mean Gradient 2 mmHg LVOT VTI 22.8 cm LVOT VTI/AV VTI Ratio 0.9 LVOT Stroke Volume 78 ml LVOT Stroke Volume Index 30 ml/m2 35-58 LVOT CO 6.7 l/min LVOT CI 2.6 l/min/m2 Pulmonic Valve Name Value Normal PV Doppler PV Peak Velocity 0.9 m/s PV Peak Gradient 3 mmHg PV Accel Time 83.73 ms Mitral Valve Name Value Normal MV Doppler MV Peak Gradient 4 mmHg MV Mean Gradient 2 mmHg MV DI (VTI) 0.68 MV Area (Cont Eq VTI) 5.09 cm2 MV Diastolic Function MV E Peak Velocity 0.7 m/sec MV A Peak Velocity 0.8 m/sec MV E/A 0.9 MV Decel Time (PW) 154 ms MV Annular TDI MV Septal e' Velocity 10 cm/s >=8 MV E/e' (Septal) 7 <=8 MV Lateral e' Velocity 8 cm/s >=10 MV E/e' (Lateral) 8 <=8 MV e' Average 9 cm/s MV E/e' (Average) 8 Tricuspid Valve Name Value Normal TV Regurgitation Doppler TR Peak Velocity 2.3 m/s TR Peak Gradient 21 mmHg Estimated PAP/RSVP RA Pressure 3 mmHg <=5 PA Systolic Pressure 24 mmHg <35 RV Systolic Pressure 24 mmHg <36 TV Annular TDI TV Lateral Hollie s' Velocity 13 cm/s 10-19 Aorta Name Value Normal Ascending Aorta Ao Root Diameter (2D) 2.5 cm Ao Root Diam Index (2D) 1.0 cm/m2 Asc Ao Diameter 2.8 cm 1.9-3.5 Asc Ao Diameter Index 1.1 cm/m2 1.0-2.2 Aortic Valve Name Value Normal AV Doppler AV Peak Velocity 1.13 m/s AV Peak Gradient 5 mmHg AV Mean Gradient 4 mmHg AV VTI 24 cm AV Area (Cont Eq VTI) 3.26 cm2 >=2.00 AV Area (Cont Eq Burke) 3.01 cm2 AV DI (VTI) 0.95 AV DI (Burke) 0.87 AV Regurgitation 2D LVOT Area 3.44 cm2 Ventricles Name Value Normal LV Dimensions 2D/MM IVS Diastolic Thickness (2D) 1.0 cm 0.6-0.9 LVID Diastole (2D) 3.8 cm 3.8-5.2 LVPW Diastolic Thickness (2D) 1.0 cm 0.6-0.9 LVID Systole (2D) 2.7 cm 2.2-3.5 LV Mass (2D Cubed) 114 g 67-162 LV Mass Index (2D Cubed) 44 g/m2 43-95 Relative Wall Thickness (2D) 0.50 <=0.42 LV Fractional Shortening/Ejection Fraction 2D/MM LV Fractional Shortening (2D) 30 % 27-45 LV EF (2D Teicholz) 58 % 54-74 LV Diastolic Volume (4C MOD) 103 ml LV EF (4C MOD) 76 % LV Diastolic Volume (2C MOD) 86 ml LV EF (2C MOD) 48 % LV Diastolic Volume (BP MOD) 96 ml 46-106 LV Diastolic Volume Index (BP MOD) 37 ml/m2 29-61 LV Systolic Volume (BP MOD) 35 ml 14-42 LV Systolic Volume Index (BP MOD) 14 ml/m2 8-24 LV EF (BP MOD) 63 % 54-74 LV Diastolic Length (4C) 7.8 cm LV Systolic Length (4C) 6.1 cm LV Stroke Volume (4C MOD) 79 ml RV Dimensions 2D/MM TAPSE 2.5 cm >=1.7 Atria Name Value Normal LA Dimensions LA Dimension (2D) 3.7 cm 2.7-3.8 LA Dimen Index (2D) 1.4 cm/m2 LA Volume (BP MOD) 44 ml LA Volume Index (BP MOD) 17 ml/m2 1634 Report Signatures Finalized by Ángel Manning on 11/08/2024 08:28 PM us Ángel Manning MD ECHO CUPID Final Result * STRESS TEST Treadmill (11/08/2024 1:19 PM CDT) Anatomical Region Laterality Modality Cardiac Electrop hysiology 11/08/2024 1:00 PM CDT Narrative 11/08/2024 4:01 PM CDT Patient Info Name: Marlen Lucero Age: 44 years : 1980 Gender: Female Wt: 314 lb HR: 96 bpm BP: 142 / 58 mmHg Heart Rhythm: Sinus Rhythm Exam Date: 11/08/2024 1:00 PM Patient Status: O Study Site: [facility] Primary Location: [facility] EStudy Info Exam Type: STRESS TEST Indications R07.9 - Chest pain, unspecified type Procedure(s) * Treadmill stress test was performed. * Poor exercise tolerance with severe shortness of breath and mild chest discomfort. Staff Ordering Provider: Ángel Manning Nurse: Leta Diez RN Exercise Physician: Ángel Manning Summary * Treadmill stress test was performed. * Poor exercise tolerance with severe shortness of breath and mild chest discomfort. * Stress ECG is negative for ischemia. * No arrhythmias were observed during the examination. Protocol: Pascual Stress ECG Details Stage: Rest Duration (min): --- Speed (mph): --- Grade (%): --- HR (bpm): 90 SBP (mmHg): 145 DBP (mmHg): 68 METS: --- Stage: 1 Duration (min): --- Speed (mph): --- Grade (%): --- HR (bpm): 124 SBP (mmHg): 181 DBP (mmHg): 86 METS: --- Stage: 2 Duration (min): --- Speed (mph): --- Grade (%): --- HR (bpm): 140 SBP (mmHg): 196 DBP (mmHg): 87 METS: --- Stage: Recovery Duration (min): --- Speed (mph): --- Grade (%): --- HR (bpm): 110 SBP (mmHg): 173 DBP (mmHg): 66 METS: --- Target HR Summary: Patient's target heart rate was not achieved due to fatigue Cardiac Symptoms: Shortness of breath, Fatigue, Chest discomfort Resting ECG Normal sinus rhythm at rest. 181. Stress ECG Heart rate demonstrated a normal response to stress. A peak heart rate of 137 bpm was achieved. The patient's peak stress blood pressure was 207/55 mmHg. Stress ECG is negative for ischemia. Borderline ST depression - anterior leads with stress. Arrhythmias No arrhythmias were observed during the examination. Termination Reason: Maximal effort/unable to continue Total Time: 3 min : 26 sec Exercise Response : Total METS: 5.6 : Functional Capacity: poor Heart Rate Response : Resting HR (bpm): 92 : Peak HR (bpm): 137 : Max Predicted HR (bpm): 176 : % of Max Predicted HR: 78 % : Target HR (bpm): 150 Blood Pressure Response : Rest Sys. BP (mmHg): 145 : Rest Diast. BP (mmHg): 68 : Peak Sys. BP (mmHg): 207 : Peak Edmonds. BP (mmHg): 55 : Max Rate Pressure Product (bpm*mmHg): 28,359 Report Signatures Finalized by Ángel Manning on 11/08/2024 04:01 PM Procedure Note Ángel Manning MD - 11/08/2024 Patient Info Name: Marlen Lucero Age: 44 years : 1980 Gender: Female Wt: 314 lb HR: 96 bpm BP: 142 / 58 mmHg Heart Rhythm: Sinus Rhythm Exam Date: 11/08/2024 1:00 PM Patient Status: O Study Site: [facility] Primary Location: [facility] Info Exam Type: STRESS TEST Indications R07.9 - Chest pain, unspecified type Procedure(s) * Treadmill stress test was performed. * Poor exercise tolerance with severe shortness of breath and mildchest discomfort. Staff Ordering Provider: Ángel Manning Nurse: Leta Diez RN Exercise Physician: Ángel Manning Summary * Treadmill stress test was performed. * Poor exercise tolerance with severe shortness of breath and mildchest discomfort. * Stress ECG is negative for ischemia. * No arrhythmias were observed during the examination. Protocol: Pascual Stress ECG Details Stage: Rest Duration (min): --- Speed (mph): --- Grade (%): --- HR (bpm): 90 SBP (mmHg): 145 DBP (mmHg): 68 METS: --- Stage: 1 Duration (min): --- Speed (mph): --- Grade (%): --- HR (bpm): 124 SBP (mmHg): 181 DBP (mmHg): 86 METS: --- Stage: 2 Duration (min): --- Speed (mph): --- Grade (%): --- HR (bpm): 140 SBP (mmHg): 196 DBP (mmHg): 87 METS: --- Stage: Recovery Duration (min): --- Speed (mph): --- Grade (%): --- HR (bpm): 110 SBP (mmHg): 173 DBP (mmHg): 66 METS: --- Target HR Summary: Patient's target heart rate was not achieved due to fatigue Cardiac Symptoms: Shortness of breath, Fatigue, Chest discomfort Resting ECG Normal sinus rhythm at rest. 181. Stress ECG Heart rate demonstrated a normal response to stress. A peak heart rateof 137 bpm was achieved. The patient's peak stress blood pressure dxl652/55 mmHg. Stress ECG is negative for ischemia. Borderline ST depression -anterior leads with stress. Arrhythmias No arrhythmias were observed during the examination. Termination Reason: Maximal effort/unable to continue Total Time: 3 min : 26 sec Exercise Response : Total METS: 5.6 : Functional Capacity: poor Heart Rate Response : Resting HR (bpm): 92 : Peak HR (bpm): 137 : Max Predicted HR (bpm): 176 : % of Max Predicted HR: 78 % : Target HR (bpm): 150 Blood Pressure Response : Rest Sys. BP (mmHg): 145 : Rest Diast. BP (mmHg): 68 : Peak Sys. BP (mmHg): 207 : Peak Edmonds. BP (mmHg): 55 : Max Rate Pressure Product (bpm*mmHg): 28,359 Report Signatures Finalized by Ángel Manning on 11/08/2024 04:01 PM Ángel Manning MD CARDI[facility] SERVICES [facility] Final Result * (ABNORMAL) HEMOGLOBIN A1C (EXTERNAL RESULT ENTRY) (09/09/2024) Hemoglobin A1c (EXTERNAL RESULT) 5.7(H) % OUTSIDE REFERENCE LAB Comment:[facility] (scanned) Blood BLOOD SPECIMEN / Unknown 09/09/2024 Historical Provider LAB - CHEMISTRY ORDERABLE S Final Result OUTSIDE REFERENCE LAB * (ABNORMAL) LIPID PROFILE (08/17/2024 9:15 AM [facility]) Cholesterol Total 180 <200 mg/dL 08/17/2024 10:15 AM [facility] HDL 30(L) >40 mg/dL 08/17/2024 10:15 AM [facility] Comment: ATP III Classification of HDL Cholesterol: <40 mg/dL: Considered a major risk factor. >60 mg/dL: Considered a negative risk factor. LDL Calculated 127(H) <100 mg/dL 08/17/2024 10:15 AM [facility] Comment: ATP III Classification of LDL Cholesterol: <100 mg/dL: Optimal 100 - 129 mg/dL: Near Optimal/Above Optimal 130 - 159 mg/dL: Borderline High 160 - 189 mg/dL: High >190 mg/dL: Very High Triglycerides 113 <150 mg/dL 08/17/2024 10:15 AM [facility] Comment: ATP III Classification of Triglycerides: <150 mg/dL: Normal 150 - 199 mg/dL: Borderline High 200 - 400 mg/dL: High >500 mg/dL: Very High Blood BLOOD SPECIMEN / Unknown Lab Venipuncture / Unknown 08/17/2024 9:15 AM [facility] 08/17/2024 9:39 AM [employer] us Francia Loja MD LAB - CHEMISTRY ORDERABLES Final Result [facility] [address] [facility] [place] [address], [facility] [phone] * Endoscopy, Colon, Diagnostic (08/11/2024 10:33 AM [employer] PROGRAM[employer]) Report Endoscopy POC _ Patient Name: Marlen Lucero Procedure Date: 08/11/2024 10:33 AM Date of : 1980 Admit Type: Outpatient Age: 44 Room: ROOM 1 Gender: Female Attending MD: Guille Drummond MD, [id number] _ Procedure: Colonoscopy Indications: Change in bowel habits Providers: Guille Drummond MD, Rachelle Maher RN, Grecia Choudhary RN, Sahara Steele CRNA (Anesthesia Staff) Medicines: Propofol per Anesthesia Complications: No immediate complications. _ Estimated Blood Loss: Estimated blood loss: none. Procedure: Pre-Anesthesia Assessment: - Prior to the procedure, a History and Physical was performed, and patient medications and allergies were reviewed. The patient's tolerance of previous anesthesia was also reviewed. The risks and benefits of the procedure and the sedation options and risks were discussed with the patient. All questions were answered, and informed consent was obtained. Prior Anticoagulants: The patient has taken no anticoagulant or antiplatelet agents. ASA Grade Assessment: III - A patient with severe systemic disease. After reviewing the risks and benefits, the patient was deemed in satisfactory condition to undergo the procedure. After I obtained informed consent, the scope was passed under direct vision. Throughout the procedure, the patient's blood pressure, pulse, and oxygen saturations were monitored continuously. The Colonoscope was introduced through the anus and advanced to the terminal ileum. The terminal ileum and the appendiceal orifice were photographed. The quality of the bowel preparation was good. Findings: A diminutive polyp was found in the rectum. The polyp was sessile. The polyp was removed with a cold biopsy forceps. Resection and retrieval were complete. The exam was otherwise without abnormality. _ Impression: - One diminutive polyp in the rectum, removed with a cold biopsy forceps. Resected and retrieved. - The examination was otherwise normal. Recommendation: - Discharge patient to home. - High fiber diet and low fat diet. - Continue present medications. - If the pathology report reveals adenomatous tissue, then repeat the colonoscopy for surveillance in 5 years. - If the pathology report indicates hyperplastic polyp, then repeat colonoscopy for screening purposes in 10 years. - Patient has a contact number available for emergencies. The signs and symptoms of potential delayed complications were discussed with the patient. Return to normal activities tomorrow. Written discharge instructions were provided to the patient. Procedure Code(s): --- Professional --- 24179, Colonoscopy, flexible; with biopsy, single or multiple --- Technical --- 26146, Colonoscopy, flexible; with biopsy, single or multiple Diagnosis Code(s): --- Professional --- D12.8, Benign neoplasm of rectum R19.4, Change in bowel habit --- Technical --- D12.8, Benign neoplasm of rectum R19.4, Change in bowel habit CPT copyright 2020 [employer]. All rights reserved. The codes documented in this report are preliminary and upon director social review may be revised to meet current compliance requirements. ____ Guille Drummond MD 08/11/2024 11:03:01 AM This report has been signed electronically. Number of Addenda: 0 Note Initiated On: 08/11/2024 10:33 AM [facility] 08/11/2024 10:3 3 AM [employer] PROGRAM[employer] Guille Drummond MD GI PROCEDURE ORDERABLES Edit ed Result - Final [facility] * MAMMO BILAT DIAGNOSTIC W EDMOND (09/14/2023) Anatomical Region Laterality Modality Breast Bilateral Mammography 09/14/2023 Eliana Browning [employer] ARCHITECT[employer] INSTRUCTOR MAMMO ORDE RABLES Final Result from Last 3 Months or Most Recently Relevant to Health Maintenance Insurance [facility] Care Teams Fishing Vessel Mate Relationship Specialty Start Date End Date Franki Nunn DO [address] [address] PCP - General Family Medicine 05/21/21 Genesis Francisco, [employer] ARCH[employer] INSTRUCTOR [address] [facility] [address] [place] [phone] Nurse Practitioner Internal Medicine Sleep Medicine 04/05/24
[2025-02-01 09:51] LABS: Hematocrit 44.1 % (37.0-47.0); Hemoglobin 14.2 g/dL (12.0-15.0); Immature Granulocyte Percent A 0.3 % (0-0.5); Lymphocytes Absolute Auto 2.38 K/mm3 (0.9-3.2); Mean Corpuscular HGB Conc 32.2 g/dl (32-36); Mean Corpuscular Hemoglobin 28.8 pg (26-34); Mean Corpuscular Volume 89.5 fl (80-100); Nucleated Red Blood Cells Absolute Auto 0.000 K/mm3 (0.0-0.012); Nucleated Red Blood Cells Perc 0.0 % (0.0-0.2); Platelet Count Result 511 k/mm3 (150-375); Red Blood Count 4.93 M/mm3 (4.2-5.4); White Blood Count 10.3 K/mm3 (4.5-10.0)
[2025-02-01 09:53] LABS: Blood Urea Nitrogen 18 mg/dL (8-26); Carbon Dioxide 22 mmol/L (22-30); Chloride 104 mmol/L (98-109); Estimated Glomerular Filt Rate > 60; Glucose 109 mg/dL (70-105); Ionized Calcium (POC) 1.15 mmol/L (1.11-1.31); Potassium 3.8 mmol/L (3.5-4.9); Sodium 139 mmol/L (138-146)
== END 2025-02-01 09:37 | disposition home or self-care (01) ==
PROVIDERS: Visit Provider Internal Medicine Hematology & Oncology
DX: D75.838 Other thrombocytosis (principal)
CPT/HCPCS: 36415; 80047; 85025